=== PATIENT | male | born 1935 | race Caucasian/White ===

== ENCOUNTER 2019-05-24 16:49 | Inpatient (IN) ==
--- NOTE | 2019-05-24 17:44 | Emergency Department Note ---
Fall HPI - General Chief Complaint: Fall Stated Complaint: Fall Time Seen by Provider: 05/24/19 17:03 Source: EMS Mode of arrival: EMS - History of Present Illness HPI Narrative: 83-year-old male patient brought into the emergency department via ambulance with chief complaint left hip pain with a shortened and angulated left lower extremity. 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 He was out "cleaning the gutters" when he placed his cane accidentally in some mud. This caused his cane to slip out from underneath him and he fell towards the right side. During this time he felt pain in his left hip and was unable to get up. EMS was contacted and they brought him in for further evaluation. Upon arrival, patient admits that the pain is only present when he is moves around. He has been nonambulatory since the fall. He admits to hitting his head but denies loss of consciousness. He denies any preceding shortness of breath, dizziness, retrosternal chest pain or palpitations prior to falling. He denies any fever, sweats, chills. He admits to an ongoing cough that is currently being worked up by a header set up operator. He is supposed to undergo a swallow evaluation tomorrow. He denies abdominal pain, nausea, vomiting, or diarrhea. He admits to left-sided focal weakness associated with the CVA. A review of his active problems shows the following: Neural foraminal stenosis of the lumbar spine, overflow incontinence, basal cell carcinoma of the nose, prostate cancer, spondylolisthesis, anxiety, insomnia, dysphasia, hypertriglyceridemia, gastrointestinal hemorrhage, left leg DVT, CVA, bronchitis, hypertension, obstructive sleep apnea. - Related Data Home Medications Medication Instructions Recorded Confirmed amlodipine 10 mg tablet 10 mg PO QAM tab 07/28/16 05/18/19 atenolol 50 mg tablet 50 mg PO QAM tab 07/28/16 05/18/19 losartan 100 1 tab PO QAM tab 07/28/16 05/18/19 mg-hydrochlorothiazide 25 mg tablet zolpidem 10 mg tablet 10 mg PO QHS PRN tab 07/28/16 05/18/19 Aspirin [Lite Coat Aspirin] 325 mg PO DAILY 10/26/17 05/18/19 Melatonin 10 mg PO HS 10/26/17 05/18/19 QUEtiapine [SEROquel] 25 mg PO HS 10/26/17 05/18/19 Nyquil PO 05/18/19 05/18/19 pantoprazole 40 mg tablet,delayed 10 mg PO QAM tab 05/18/19 05/18/19 release quetiapine 50 mg tablet 50 mg PO QDAY 05/18/19 05/18/19 Previous Rx's Medication Instructions Recorded oxybutynin chloride 10 mg 10 mg PO QDAY #60 tab 04/11/19 tablet,extended release 24 hr Allergies Allergy/AdvReac Type Severity Reaction Status Date / Time hydrocodone Allergy Unknown Upset Verified 05/24/19 16:50 Stomach Review of Systems All systems ED: reviewed and negative except as stated. Fall PMH - Past Medical History Medical history: Reports: DVT - Social History smoking status: Never smoker Physical Exam Limitations: no limitations General appearance: alert, grimacing (With any form of movement of the left lower leg.), in no apparent distress (No apparent respiratory distress), other (Well-developed, well-nourished, obese 83-year-old male in no acute respiratory distress.) Head: atraumatic, normocephalic Eye: Present: normal appearance, PERRL, EOMI, other (No raccoon eyes.). Absent: scleral icterus, conjunctival injection ENT: Present: normal oropharynx, mucous membranes dry, other (No moznon signs.) Neck: Present: trachea midline. Absent: tenderness, lymphadenopathy, thyromegaly Chest: Present: symmetric chest wall rise Respiratory: Present: normal lung sounds bilaterally. Absent: respiratory distress, wheezes, stridor, accessory muscle use, prolonged expiratory phase Cardiovascular: Present: regular rate, normal rhythm. Absent: systolic murmur, diastolic murmur Abdominal: Present: soft, hyperactive bowel sounds, other (Patient's body habitus is large making abdominal palpation somewhat difficult.). Absent: d istention, tenderness, guarding, rebound, rigidity, organomegaly, mass Extremities: Present: tenderness (Considerable tenderness to the left hip joint. ), normal capillary refill. Absent: normal inspection, full ROM (No range of motion was attempted to the left hip. He moves his right arm deformity motion. He has good range of motion to his right leg. Left arm is drawn up and weathered.), pedal edema Hip/Pelvis: Present: tenderness (Left hip joint.), external rotation (Left leg), shortening (Left leg). Absent: crepitus Neurological: Present: alert, oriented X3, other (Sensation is grossly intact light touch in all areas.) Psychiatric: Present: normal affect, anxious Skin: Present: warm, dry, normal color Course Course Narrative: Patient was brought into the emergency department and a history and physical exam was performed. An IV was already established and laboratory studies were drawn. Patient was already given 100 mcg of fentanyl by EMS. He is currently comfortable laying supine not moving. Radiographs left hip show an acute transverse femoral neck fracture. Portable chest x-ray showing no acute abnorma lity. With the noted femoral neck fracture I reached out to the on-call orthopedic surgeon (Dr. Otero) and discussed the case with him. At this time Dr. Otero requested that I reach out to the hospitalist in order to the patient admitted. After reviewing the films, he will determine whether or not he is going to attempt surgery tonight or tomorrow. With this in mind, I discussed this with the patient and his family. Next, I reached out to the hospitalist (Dr. Aparicio) about the need for admission. At this time the hospitalist is accepted the patient to be admitted to the hospital. It is my understanding that Dr. Otero will perform the surgical procedure tomorrow some time. I discussed this with the patient and his family and they are in agreement. As mentioned, the patient is suffering from some form of cough and is going to be scheduled for a swallow eval in the. He continues to cough aggressively in the emergency room and this is causing him his considerable pain. I ordered Dilaudid 0.5mg IVP. I am also going to try benzonatate 200mg p.o. Afterward, patient is going to be admitted under the care of the hospitalist with Dr. Otero consulting is the orthopedic surgeon. All future treatment decisions and modalities will be carried out by Dr. Aparicio and Dr. Otero. Vital Signs Temperature 98.0 F 05/24/19 16:50 Pulse Rate 60 05/24/19 16:50 Respiratory Rate 18 05/24/19 16:50 Blood Pressure 148/68 05/24/19 16:50 Pulse Oximetry (%) 93 01/29/20 16:50 Temperature 98.0 F 05/24/19 16:50 Pulse Rate 60 05/24/19 16:50 Respiratory Rate 18 05/24/19 16:50 Blood Pressure 148/68 05/24/19 16:50 Pulse Oximetry (%) 93 05/24/19 16:50 Fall - Lab Data Lab results reviewed: Yes I reviewed the patient's lab results. Result diagrams: 05/24/19 17:46 05/24/19 17:46 Lab Results 05/24/19 05/24/19 05/24/19 Range/Units 17:46 17:46 17:46 WBC 6.6 (4.50-11.00) K/mcL RBC 4.78 (4.63-6.08) M/mcL Hgb 14.7 (13.7-17.5) g/dL Hct 43.7 (40.1-51.0) % MCV 91.4 (80.0-100.0) fL MCH 30.8 (26.0-34.0) pg MCHC 33.6 (31.0-36.0) g/dL RDW 13.5 (11.5-14.5) % Plt Count 202 (140-440) K/mcL MPV 11.5 H (7.4-10.4) fL Gran % 68.6 (38.0-78.0) % Lymph % (Auto) 18.7 (15.5-49.0) % [place] % (Auto) 8.6 (1.0-12.0) % Eos % (Auto) 3.5 (0.0-7.0) % Baso % (Auto) 0.6 (0.0-2.0) % Gran # 4.56 (1.80-8.00) K/mcL Lymph # (Auto) 1.24 L (1.50-4.80) K/mcL [place] # (Auto) 0.57 (0.10-0.90) K/mcL Eos # (Auto) 0.23 (0.00-0.70) K/mcL Baso # (Auto) 0.04 (0.00-0.30) K/mcL POC PT 11.6 L (11.9-14.5) sec POC INR 1.0 (0.9-1.2) Sodium 138 (133-145) mmol/L Potassium 4.1 (3.3-5.1) mmol/L Chloride 102 (96-108) mmol/L Carbon Dioxide 25 (22-30) mmol/L Anion Gap 11.0 (8-16) BUN 24 H (8-23) mg/dl Creatinine 0.9 (0.7-1.2) mg/dl GFR Calculation 80 Glucose 145 H (70-105) mg/dL Calcium 8.4 L (8.6-10.4) mg/dl Total Bilirubin 0.7 (0.0-1.0) mg/dL AST 27 (0-37) U/l ALT 25 (0-40) U/l Alkaline Phosphatase 60 (39-117) U/L Total Protein 6.7 (5.9-8.4) gm/dL Albumin 3.9 (3.2-5.2) gm/dL Globulin 2.8 (2.2-3.7) gm/dL Albumin/Globulin Ratio 1.4 (1.0-2.3) - Radiology Data Radiology results reviewed: Yes I reviewed the patient's radiology results. Ordering Physician: Jon Zepeda M.D. Date of Service: 05/24/19 Procedure(s): XR hip LT comp 2VW Accession Number(s): [id number] HISTORY: History: Fell with left hip injury. FINDINGS: there is an acute transverse fracture through the left femoral neck. The shaft is retracted proximally and the head is rotated. The hip joint space is normal in width and there is no underlying arthritis. There are multiple surgical clips in both sides of the pelvis. There is no evidence of bone metastasis. Postsurgical changes are also seen in the lumbar spine following prior fusion. IMPRESSION: left femoral neck fracture Interpreted and Authenticated by: Benjamin Anne 05/24/19 - EKG Data EKG attestation: Yes I reviewed and interpreted this EKG., Yes There are no EKG findings of acute coronary syndrome, Yes This EKG will be read by logging engineer Disposition Pt seen by SWEATBAND PERFORATOR/PA only: Yes Clinical Impression: Left displaced femoral neck fracture, Cough Disposition: Home, Self-Care Condition: Serious Additional Instructions: As mentioned the patient is going to be admitted to the hospital of the care of the hospitalist with the orthopedic surgeon in consultation. All further treatment decisions and modalities will be carried out by the hospitalist or orthopedic surgeon. Referrals: Sebastian Adams DO [Primary Care Provider] - Venkat Otero MD [Physician] -
--- NOTE | 2019-05-24 17:50 | XRay Report ---
HISTORY: History: Fell with left hip injury. FINDINGS: there is an acute transverse fracture through the left femoral neck. The shaft is retracted proximally and the head is rotated. The hip joint space is normal in width and there is no underlying arthritis. There are multiple surgical clips in both sides of the pelvis. There is no evidence of bone metastasis. Postsurgical changes are also seen in the lumbar spine following prior fusion. IMPRESSION: left femoral neck fracture Interpreted and Authenticated by: Benjamin Anne 05/24/19
--- NOTE | 2019-05-24 17:51 | XRay Report ---
HISTORY: Preop to repair left hip fracture FINDINGS: Lungs are clear. Heart size is normal. There is no congestive heart failure or pleural effusion. There are few old healed left lateral rib fractures. Comparison with the prior chest CT done on 05/10/19 shows little change. IMPRESSION: No acute abnormality Interpreted and Authenticated by: Benjamin Anne 05/24/19
[2019-05-24 17:52] LABS: POC Pro Time 11.6 sec (11.9-14.5)
[2019-05-24 18:24] LABS: Basophils # (Auto) 0.04 K/mcL (0.00-0.30); Basophils % (Auto) 0.6 % (0.0-2.0); Eosinophils # (Auto) 0.23 K/mcL (0.00-0.70); Eosinophils % (Auto) 3.5 % (0.0-7.0); Granulocytes % (Auto) 68.6 % (38.0-78.0); Hematocrit 43.7 % (40.1-51.0); Hemoglobin 14.7 g/dL (13.7-17.5); Lymphocytes # (Auto) 1.24 K/mcL (1.50-4.80); Lymphocytes % (Auto) 18.7 % (15.5-49.0); Mean Cell Volume 91.4 fL (80.0-100.0); Mean Corpuscular HGB Conc 33.6 g/dL (31.0-36.0); Mean Platelet Volume 11.5 fL (7.4-10.4); Monocytes # (Auto) 0.57 K/mcL (0.10-0.90); Monocytes % (Auto) 8.6 % (1.0-12.0); Platelet Count 202 K/mcL (140-440); RBC 4.78 M/mcL (4.63-6.08); Red Cell Distribution Width 13.5 % (11.5-14.5); WBC 6.6 K/mcL (4.50-11.00)
[2019-05-24 18:34] LABS: ALT/SGPT 25 U/l (0-40); AST/SGOT 27 U/l (0-37); Albumin 3.9 gm/dL (3.2-5.2); Albumin/Globulin Ratio 1.4 (1.0-2.3); Alkaline Phosphatase 60 U/L (39-117); Bilirubin,Total 0.7 mg/dL (0.0-1.0); Blood Urea Nitrogen 24 mg/dl (8-23); Calcium 8.4 mg/dl (8.6-10.4); Carbon Dioxide 25 mmol/L (22-30); Chloride 102 mmol/L (96-108); Globulin 2.8 gm/dL (2.2-3.7); Glomerular Filtration Rate 80; Glucose 145 mg/dL (70-105)
[2019-05-24] MEDS ORDERED: HYDROmorphone 2 MG/ML VIAL IV PRN ×3 (18:34→20:49)
[2019-05-24] MEDS ORDERED: ONDANSETRON 4 MG/2 ML VIAL IV PRN ×2 (19:08→20:49)
[2019-05-24] MEDS ORDERED: ACETAMINOPHEN 325 MG TABLET PO PRN ×2 (19:08→20:49)
[2019-05-24] MEDS ORDERED: 0.9 % SODIUM CHLORIDE 1,000 ML IV SCH (19:15)
[2019-05-24] MEDS ORDERED: BENZONATATE 100 MG CAPSULE PO ONE (19:27)
--- NOTE | 2019-05-24 20:25 | Internal Med History&Physical ---
Medical - H&P: HPI Patient information: Note initiated : 05/24/19 at 8:20 pm Service Date, if different from initiated Date: [] Patient: Bryan Arriaga 83 y/o M admitted on for Fall. Chief Complaint: [] was walking with his cane. 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 Right arm cane was misplaced in a hole and he fell on left hip with fem neck displaced fracture. Admitted at this time with anticipated Left hip repair tomorrow morning. Pt denies CAD and had just the one stroke while working in [place] 1971. Has been on a baby asa daily since then. 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 Able to drive a manual transmission car and used a nail in a board to peel potatoes. Pt recently less mobile with age. He has been battling a 2-3 month dry cough, positionally worse when supine. feels like something in his throat. Has swallow study scheduled outpt for tomorrow. Denies any pneumonia or cough production. Denies chest pain with activity. No trouble swallowing. Beyond sun related skin cancers tx with radiation to face. per pt no other cancers, by old records has had prostate and bladder cancers though Accompanied by his brother and a sister in law. Pt wants DNR status. History of present illness: Mr. Arriaga is a 83 year old M - Constitutional Constitutional: Present: snoring. Absent: chills, fever(s), frequent falls, lethargy, malaise - EENT Eyes: Absent: change in vision, other visual disturbances Nose, mouth and throat: Absent: dysphagia, epistaxis, odynophagia, tongue swelling - Cardiovascular Cardiovascular: Absent: chest pain, dyspnea on exertion, irregular heart rhythm - Respiratory Respiratory: Present: cough. Absent: chest congestion, excessive phlegm production - Gastrointestinal Gastrointestinal: Absent: abdominal pain, change in bowel habits, dysphagia - Genitourinary Genitourinary: Absent: urinary frequency, urinary hesitancy - Musculoskeletal Musculoskeletal: Present: abnormal gait - Neurological Neurological: Present: as per HPI (has mild left facial droop no trouble with speech left leg discoord. left arm contract, hand not functional for grasp) - Psychiatric Psychiatric: Absent: behavioral changes - Hematologic/Lymphatic Hematologic/Lymphatic: Absent: easy bleeding, easy bruising Medical - H&P: PMH Problems Reviewed: Yes Medical history: hypertension, insomnia, past CVA Functional capacity: uses cane/walker Have you smoked in the last 12 months: No Medical - H&P: Meds Home Medications Medication Instructions Recorded Confirmed Type amlodipine 10 mg tablet 10 mg PO QAM tab 07/28/16 05/24/19 History atenolol 50 mg tablet 50 mg PO QAM tab 07/28/16 05/24/19 History losartan 100 1 tab PO QAM tab 07/28/16 05/24/19 History mg-hydrochlorothiazide 25 mg tablet zolpidem 10 mg tablet 10 mg PO QHS PRN tab 07/28/16 05/24/19 History QUEtiapine [SEROquel] 50 mg PO HS 10/26/17 05/24/19 History oxybutynin chloride 10 mg 10 mg PO QDAY #60 tab 04/11/19 05/24/19 Rx tablet,extended release 24 hr pantoprazole 40 mg tablet,delayed 10 mg PO QAM tab 05/18/19 05/24/19 History release quetiapine 50 mg tablet 50 mg PO QDAY 05/18/19 05/24/19 History Benzonatate [Tessalon] 100 - 200 mg PO Q8HP PRN 05/24/19 05/24/19 History Hydrochlorothiazide [Oretic] 25 mg PO QAM 05/24/19 05/24/19 History Allergies Allergy/AdvReac Type Severity Reaction Status Date / Time hydrocodone Allergy Unknown Upset Verified 05/24/19 16:50 Stomach Medical - H&P: Exam - Constitutional Vitals: Temp Pulse Resp BP Pulse Ox 98.0 F 60 18 148/68 93 05/24/19 16:50 05/24/19 16:50 05/24/19 16:50 05/24/19 16:50 05/24/19 16:50 General appearance: obese - Head Head exam: Present: atraumatic - Eye Eye exam: Present: normal appearance - Expanded ENT Exam Nose & sinuses exam: Absent: external nose, grossly normal (surgical scarring nose mild misshapen) Mouth exam: Present: moist, muffled voice (hoarse, no high notes, mono tone), tongue normal. Absent: drooling Throat exam: Present: normal inspection. Absent: post pharyngeal edema, post pharyngeal erythema - Neck Neck exam: Absent: tenderness - Expanded Neck Exam Neck exam: Absent: anterior neck swelling - Respiratory Respiratory exam: Present: normal respiratory exam, CTAB. Absent: chest wall tenderness, rales, respiratory distress - Cardiovascular Cardiovascular exam: Present: normal rate and rhythm - GI/Abdominal GI/Abdominal exam: Present: normal bowel sounds, soft. Absent: tenderness - Rectal Rectal exam: Present: deferred - Expanded Exam Urine Appearance: Clear (mid tone yellow) Urine Color: Dark Yellow (franco in place) - Extremities Exam Extremities exam: Present: pedal edema (1+ bilat) - Neurological Exam Neurological exam: Present: alert, oriented X3 - Expanded Neurological Exam Patient oriented to: Present: person, place, time - Psychiatric Psychiatric exam: Present: normal affect, normal mood - Skin Skin exam: Present: dry, warm Medical - H&P: Reslt - Labs CBC & Chem 7: 05/24/19 17:46 05/24/19 17:46 Labs: Short CBC 05/24/19 Range/Units 17:46 WBC 6.6 (4.50-11.00) K/mcL Hgb 14.7 (13.7-17.5) g/dL Hct 43.7 (40.1-51.0) % Plt Count 202 (140-440) K/mcL BMP 05/24/19 17:46 Sodium 138 Potassium 4.1 Chloride 102 Carbon Dioxide 25 BUN 24 H Creatinine 0.9 Glucose 145 H Calcium 8.4 L Liver Function 05/24/19 Range/Units 17:46 Total Bilirubin 0.7 (0.0-1.0) mg/dL AST 27 (0-37) U/l ALT 25 (0-40) U/l Alkaline Phosphatase 60 (39-117) U/L Albumin 3.9 (3.2-5.2) gm/dL Medical - H&P: A/P (1) Closed fracture of left hip Problem details: displaced but not open. will need surgery possibly NEAL. ok to proceed with surgery. planned for the morning. no cardiopulmonary symptoms INR normal. 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 NSSTTW Changes Current visit: Yes Status: Acute (2) Hypertension Problem details: stable and no chest pain. Current visit: No Status: Chronic (3) Stroke Problem details: left hemiplegia. no change Current visit: No Status: Chronic (4) Cough Problem details: pt with hoarse voice and loss of vocal range. 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 Has seen scada technician may benefit from visualization of airway. Current visit: Yes Status: Chronic
[2019-05-24] MEDS: HYDROmorphone 2 MG/ML VIAL IV PRN (20:30)
[2019-05-24] MEDS ORDERED: BENZOCAINE 1 SPRAY BOTTLE TOPICAL ONE (20:46)
[2019-05-24] MEDS ORDERED: SENNOSIDES 1 TABLET PO SCH (21:00)
[2019-05-24] MEDS ORDERED: DOCUSATE SODIUM 100 MG CAPSULE PO SCH (21:00)
[2019-05-24] MEDS ORDERED: BENZOCAINE 1 SPRAY BOTTLE TOPICAL PRN ×2 (21:19)
[2019-05-24 22:00] LABS: Appearance,Urine CLEAR; Bilirubin,Urine NEG (NEG); Color,Urine YELLOW; Culture Indicated,Urine NO; Glucose,Urine (UA) NEGATIVE (NEG); Ketones,Urine NEG (NEG); Leukocyte Esterase,Urine NEG /uL (NEG); Nitrate,Urine NEG (NEG); Protein,Urine NEG (NEG); Specific Gravity,Urine 1.023 (1.000-1.035); Urine Blood NEG mg/dL (<0.03); Urobilinogen,Urine NEG (NEG)
[2019-05-24] MEDS ORDERED: 0.9 % SODIUM CHLORIDE 10 ML SYRINGE IV SCH (22:00)
[2019-05-24] MEDS: SENNOSIDES 1 TABLET PO SCH (22:03)
[2019-05-24] MEDS: DOCUSATE SODIUM 100 MG CAPSULE PO SCH (22:03)
[2019-05-24] MEDS: BENZONATATE 100 MG CAPSULE PO PRN (22:03)
[2019-05-24] MEDS: QUEtiapine 25 MG TABLET PO SCH (22:03)
[2019-05-24] MEDS: ZOLPIDEM 5 MG TABLET PO PRN (22:04)
[2019-05-25] MEDS: 0.9 % SODIUM CHLORIDE 1,000 ML IV SCH ×3 (00:42→16:51)
[2019-05-25] MEDS: 0.9 % SODIUM CHLORIDE 10 ML SYRINGE IV SCH ×3 (00:43→14:02)
[2019-05-25] MEDS: BENZONATATE 100 MG CAPSULE PO PRN ×2 (06:08→20:59)
[2019-05-25] MEDS: PANTOPRAZOLE 40 MG TABLET PO SCH (07:43)
[2019-05-25] MEDS ORDERED: SCOPOLAMINE 1 PATCH PATCH TOPICAL PRN (07:50)
[2019-05-25] MEDS ORDERED: IPRATROPIUM/ALBUTEROL 3 ML AMPUL.NEB NEB PRN ×2 (07:50→14:52)
--- NOTE | 2019-05-25 08:20 | History and Physical Report ---
DATE OF ADMISSION: 05/24/2019 CHIEF COMPLAINT: Left hip pain as well as severe cough. HISTORY OF PRESENT ILLNESS: The patient was walking out to his street to clear a rain gutter in the street when his cane got stuck and caused him to fall. He has had previous stroke with left hemiplegia that contributed to the fall. The stroke was back in 1971. The patient was brought to the ED. X-rays were taken which showed a displaced femoral neck fracture and Orthopedics was then consulted for definitive treatment. The patient is significantly concerned about his cough. He has been seen for this several times in the ED. They have ordered a swallow study to check his vocal cords and throat. This has not yet been completed. Hospitalist has recommended that at the time of intubation during surgery for Anesthesia to do an evaluation of his vocal cords and throat. PAST MEDICAL HISTORY: Previous CVA in 1971, hypertension, and insomnia. PAST SURGICAL HISTORY: Spinal surgery. HOME MEDICATIONS: 1. Amlodipine. 2. Atenolol. 3. Losartan. 4. Zolpidem. 5. Seroquel. 6. Oxybutynin. 7. Pantoprazole. 8. Quetiapine. 9. Tessalon. 10. Hydrochlorothiazide. ALLERGIES: HYDROCODONE, stating that this causes upset stomach. PHYSICAL EXAMINATION: VITAL SIGNS: Most recent vital signs include temperature 98.4, pulse rate is 84, respiratory rate is 16, blood pressure is 146/77, pulse ox is 93 with 2 liters of oxygen. The patient is 6 foot, 248 pounds. GENERAL: He is alert and oriented x3. He has got appropriate mood and affect. He is in mild acute distress due to his significant cough. HEART: Regular. LUNGS: Sounds clear to auscultation. However, he does get a chest rattle when he coughs. I think this is not related to actual lung pathology, however. EXTREMITIES: He does move his right lower extremity with no pain. He does have good hip flexion, knee flexion, extension, ankle plantar flexion, dorsiflexion. His left hip upon inspection is shortened and externally rotated. He does move his toes, flex and extend okay. Otherwise, he is unable to move the left lower extremity due to pain. He does have tenderness to palpation over the left hip. He does have palpable tibial pulses bilaterally and sensation is grossly intact to light touch. There is mild swelling noted on the left hip as well. IMAGING: X-rays do show a displaced femoral neck fracture of the left hip. IMPRESSION: Left hip displaced femoral neck fracture. PLAN: The patient has elected to proceed with a left hip hemiarthroplasty to be performed by Dr. Otero. Initially, he did want transfer out of the hospital to evaluate his cough prior to proceeding with surgery. I explained that we will continue to monitor his breathing situation and have him evaluated by Anesthesia as well prior to surgery. I did have a long discussion with the patient regarding the procedure and the postoperative protocol. I advised the patient of the risks of surgery including bleeding, infection, injury to nerves, blood vessels, other structures in the area, anesthetic risks which Anesthesia would talk to him about. I advised him that anytime we are doing surgery for pain or fracture that there is no guarantee we will relieve any or all of his pain and potential for repeat fracture or fracture not healing. The patient understands risks and is willing to proceed. ALDAIR:bar Job ID: [id number] Doc ID: [id number] Felix Combs PA-C
[2019-05-25] MEDS: HYDROCHLOROTHIAZIDE 25 MG TABLET PO SCH (08:57)
[2019-05-25] MEDS: ATENOLOL 50 MG TABLET PO SCH (08:57)
[2019-05-25] MEDS: LOSARTAN 50 MG TABLET PO SCH (08:57)
[2019-05-25] MEDS: amLODIPine 10 MG TABLET PO SCH (08:58)
[2019-05-25] MEDS ORDERED: ENOXAPARIN 40 MG/0.4 ML SYRINGE SQ SCH ×2 (09:00)
[2019-05-25] MEDS ORDERED: LOSARTAN/HCTZ 100/25 TABLET PO SCH (09:00)
[2019-05-25] MEDS: QUEtiapine 25 MG TABLET PO SCH ×2 (09:01→20:58)
[2019-05-25] MEDS: DOCUSATE SODIUM 100 MG CAPSULE PO SCH ×2 (09:01→20:59)
[2019-05-25] MEDS ORDERED: [UNRECOGNIZED DRUG - OTHER] TOPICAL PRN (10:10)
[2019-05-25] MEDS ORDERED: BENZOCAINE 20% TOPICAL PRN (10:10)
--- NOTE | 2019-05-25 10:10 | Emergency Department Note ---
ED Note Addendum Note Addendum: I reviewed this case of Edson Knight PA-C. I agree with his evaluation management documentation. In particular we discussed management of a fractured hip and the need for admission. I briefly visited with the patient's family try to answer any questions and alleviate any concerns. Patient will be admitted to the hospitalist and orthopedics will plan on repairing his fractured hip tomorrow
[2019-05-25] MEDS: AZITHROMYCIN 500 MG in DEXTROSE 5% IN WATER 250 ML IV SCH (13:16)
[2019-05-25] MEDS ORDERED: ceFAZolin 2 GM in DEXTROSE 5% IN WATER 50 ML IV SCH (13:30)
[2019-05-25] MEDS ORDERED: KETAMINE 100 MG/ML ML IV ONE (13:31)
[2019-05-25] MEDS ORDERED: GLYCOPYRROLATE 0.2 MG/ML VIAL IV ONE (13:31)
[2019-05-25] MEDS ORDERED: ROPIVACAINE HCL/PF 30 ML VIAL IJ ONE (13:31)
[2019-05-25] MEDS ORDERED: DEXAMETHASONE 10 MG/ML VIAL IV ONE (13:31)
[2019-05-25] MEDS ORDERED: SUCCINYLCHOLINE 20 MG/ML ML IV ONE (13:31)
[2019-05-25] MEDS ORDERED: fentaNYL 250 MCG/5 ML VIAL IV ONE (13:31)
[2019-05-25] MEDS ORDERED: PROPOFOL 200 MG/20 ML VIAL IV ONE (13:31)
[2019-05-25] MEDS ORDERED: LIDOCAINE HCL/PF 100 MG/5 ML SYRINGE IV ONE (13:31)
[2019-05-25] MEDS ORDERED: ONDANSETRON 4 MG/2 ML VIAL IV ONE (13:31)
[2019-05-25] MEDS ORDERED: fentaNYL 100 MCG/2 ML VIAL IV PRN (14:52)
[2019-05-25] MEDS ORDERED: MEPERIDINE 25 MG/ML SYRINGE IV PRN (14:52)
[2019-05-25] MEDS ORDERED: ACETAMINOPHEN 1,000 MG/100 ML BOTTLE IV ONE (14:52)
[2019-05-25] MEDS ORDERED: KETOROLAC 15 MG/ML VIAL IV PRN (14:52)
[2019-05-25] MEDS ORDERED: ONDANSETRON 4 MG/2 ML VIAL IV PRN (14:52)
[2019-05-25] MEDS ORDERED: BENZOCAINE/MENTHOL 1 LOZENGE PO PRN (14:52)
[2019-05-25] MEDS ORDERED: LACTATED RINGERS 1,000 ML IV SCH (15:00)
--- NOTE | 2019-05-25 15:05 | Brief Operative Note ---
Date of procedure: 05/25/19 Pre-op diagnosis: Left displaced femoral neck fracture Post-op diagnosis: same Procedure: Open treatment left femoral neck fracture with prosthetic hemiarthroplasty Grafts/Implants: Yes (Depuy 8 summit basic cementless stem, +0 neck, 54 unipolar head) Anesthesia: spinal, GLMA Findings: displace fracture Complications: none Surgeon: Venkat Otero Grommet Worker: Felix Combs Estimated blood loss (cc): 250 Specimens Removed/Pathology: other (femoral head, discarded) Condition: stable Disposition: PACU
--- NOTE | 2019-05-25 16:07 | Operative Note ---
DATE OF OPERATION: 05/25/2019 PREOPERATIVE DIAGNOSIS: Left displaced femoral neck fracture, closed. POSTOPERATIVE DIAGNOSIS: Left displaced femoral neck fracture, closed. PROCEDURE PERFORMED: Open treatment of the left displaced femoral neck fracture with prosthetic hemiarthroplasty placing a DePuy Baxter Basic cementless size 8 femoral stem, a 0 neck with a 54 unipolar head. SURGEON: Venkat Otero M.D. HARNESS REPAIRER: Leonardo Combs PA-C. ANESTHESIA: Spinal plus general. DRAINS: None. SPECIMENS: Femoral head which was discarded. BLOOD LOSS: 250 mL. COMPLICATIONS: None. POSTOPERATIVE CONDITION: Stable. INDICATIONS FOR SURGERY: This is an 83-year-old male who fell yesterday injuring his left hip. He had pain and inability to bear weight. He was taken to the emergency department and x-rays taken which showed a displaced femoral neck fracture. FINDINGS AT SURGERY: Displaced fracture. Post-placement of the hemiarthroplasty showed stable hip throughout range of motion and what appeared to be similar leg lengths. PROCEDURE IN DETAIL: The patient had been seen preoperatively and informed consent had been obtained after discussion of risks and benefits of surgery. Risks including, but not limited to, bleeding; infection, possibly requiring implant removal and prolonged IV antibiotics; injury to nerves, blood vessels, other surrounding structures; anesthetic risks; dislocation; fracture; DVT and pulmonary embolus risks; and the possibility of needing further revision surgery. He understood and wished to proceed. Correct operative site was marked in preoperative holding and patient was given spinal anesthesia and then taken to the operating room. LMA general was given. He was positioned in the right lateral decubitus position and pressure points were carefully padded. Left hip and lower extremity were then carefully prepped and draped in normal sterile fashion, and a timeout was performed verifying patient name, operative site, and plan. Ioban was used to cover all skin surfaces and a standard posterior approach incision was made with a scalpel through skin and subcutaneous tissue. Hemostasis was obtained with Bovie cautery. We continued careful dissection down onto the tensor fascia and then Irrisept was irrigated. We then incised the fascia in line with the skin incision and then the Charnley retractor was placed deep. We used a lap sponge to sweep the fat off the short external rotators and then these were released off the femur. Capsule was then incised in a T-shape up to the acetabular rim and then along perpendicular to the neck. We then opened this and a large hemarthrosis was evacuated. A corkscrew was placed in the femoral head and then this was removed. We removed bone fragments from the joint and then made sure the ligament was excised from the central acetabulum. We then exposed the proximal femur. Box osteotome was used to make canal entry. A hand awl was used to identify canal trajectory. We used the lateralizing rasp and then began sequentially broaching. A size 7 broach seated below our neck cut, so we went up to a size 8. This seated just above our neck cut. We trialed with a 0 neck and it reduced with good tension and did not appear to be excessively tight. We checked stability and it was good, so we went ahead and redislocated. We removed the trial implants. Definitive implants were opened. We irrigated copiously with Irrisept, after waiting a minute and copiously pulse lavaged with saline. The stem was then impacted. It did seat a couple millimeters proud of our broach. We went ahead and impacted the unipolar head onto the stem. The hip was reduced. We then irrigated with Irrisept, and then after a minute pulse lavaged with saline. The posterior capsule was then closed with #5 FiberWire [id number] sutures. We then closed the tensor fascia with two running #1 Vicryls. A final Irrisept irrigation was done, after a minute final pulse lavage, and then 2-0 Monocryl was used for subcutaneous closure and radha for skin. Xeroform and sterile dressing were applied. The patient was then placed in an abductor wedge, awakened, extubated, and transferred to recovery in stable condition. CIPRIANO:bar Job ID: [id number] Doc ID: [id number] Venkat Otero MD
--- NOTE | 2019-05-25 16:50 | XRay Report ---
HISTORY: Postop left hip replacement FINDINGS: There is a well-positioned unipolar left hip prosthesis. No fractures present. There are multiple surgical clips in the lower pelvis bilaterally, suggesting prior prostate surgery. IMPRESSION: Well-positioned left hip prosthesis Interpreted and Authenticated by: Benjamin Anne 05/25/19
--- NOTE | 2019-05-25 17:04 | Internal Med Progress Note ---
Medical - PN: Subj Patient information: Note initiated : 05/25/19 at 4:50 pm Service Date, if different from initiated Date: [] Patient: Bryan Arriaga 83 y/o M admitted on 05/24/19 for Fall. Chief Complaint: [] Interval history: pt with worsened cough overnight. grumpy after narcotics and was requesting transfer to [place] for cough evaluation. Pt was seen earlier and with his brother and sister in law present. Pt with some yellow production. sputum sample ordered and pt started on azithromycin for possible pertussis. Pt unable to lie flat for CT neck earlier. Vocal cords ok on intubation. Anesthesiol ogist suspect bronchitis. the Pt underwent left hemiarthroplasty and is doing ok. Cough is less. He is willing to go lie flat for CT neck. Has been coughing for 2 months. - Constitutional Vitals: Vital Signs Temp Pulse Resp BP Pulse Ox 98.7 F 62 14 164/71 93 05/25/19 16:15 05/25/19 16:20 05/25/19 16:20 05/25/19 16:20 05/25/19 16:20 Period Temp Pulse Resp BP Sys/Alamo Pulse Ox Last 24 Hr 97.1 F-98.7 F 55-110 14-19 130-164/55-97 88-99 Intake and Output 05/25/19 05/25/19 05/25/19 05:59 13:59 21:59 Intake Total 0 808 2950 Output Total 85 Balance 0 808 2865 Weight 248 lb 8 oz Patient Weight 05/26/19 05:59 Weight 248 lb 8 oz Intake & Output: Intake & Output 05/25/19 05/25/19 05/25/19 05:59 13:59 21:59 Intake Total 0 808 2950 Output Total 85 Balance 0 808 2865 Weight 248 lb 8 oz Intake: IV 808 1350 Sodium Chloride 0.9% 1,000 ml @ 808 1000 75 mls/hr IV .[id number] [facility] Rx#: [id number] Zithromax 500 mg In Dextrose 5% 250 in Water 250 ml @ 250 mls/hr IV Q24H GR[facility] Rx#:[id number] Oral 0 IV - Manual Only 1600 Output: Estimated Blood Loss 85 - Respiratory Respiratory exam: Present: normal respiratory exam, CTAB, respiratory distress (severe coughing). Absent: decreased breath sounds, rales, stridor, wheezes - Cardiovascular Cardiovascular exam: Present: normal rate and rhythm - GI/Abdominal GI/Abdominal exam: Present: normal bowel sounds, soft - Extremities Exam Extremities exam: Absent: calf tenderness Medical - PN: Obj Da - Labs CBC & Chem 7: 05/24/19 17:46 05/24/19 17:46 Labs: Abnormal Lab Results 05/24/19 05/24/19 05/24/19 17:46 17:46 17:46 MPV 11.5 H Lymph # (Auto) 1.24 L POC PT 11.6 L BUN 24 H Glucose 145 H Calcium 8.4 L Meds: Medications Acetaminophen (Tylenol) 650 mg PO Q6HP PRN; Protocol PRN Reason: Per Pain Protocol/Fever > 101 Last Admin: 05/25/19 00:47 Dose: 650 mg Documented by: Albuterol/Ipratropium (Duoneb) 3 ml NEB ONCE PRN PRN Reason: Wheezing Stop: 05/25/19 16:52 Amlodipine Besylate (Norvasc) 10 mg PO QAM [facility] Last Admin: 05/25/19 08:58 Dose: 10 mg Documented by: Atenolol (Tenormin) 50 mg PO QAM [facility] Last Admin: 05/25/19 08:57 Dose: 50 mg Documented by: Benzonatate (Tessalon) 200 mg PO Q8HP PRN PRN Reason: Cough Stop: 05/30/19 23:59 Last Admin: 05/25/19 06:08 Dose: 200 mg Documented by: Cefazolin Sodium (Ancef) 2 gm IV Q8H [facility] Stop: 05/26/19 05:01 Docusate Sodium (Colace) 100 mg PO BID [facility] Last Admin: 05/25/19 09:01 Dose: Not Given Documented by: Fentanyl (Sublimaze) 25 mcg IV Q2M PRN PRN Reason: Pain Stop: 05/25/19 16:53 Hydrochlorothiazide (Oretic) 25 mg PO DAILY [facility] Last Admin: 05/25/19 08:57 Dose: 25 mg Documented by: Hydromorphone HCl (Dilaudid) 0.5 mg IV Q2HP PRN; Protocol PRN Reason: Per Pain Protocol Last Admin: 05/24/19 20:30 Dose: 0.5 mg Documented by: Sodium Chloride (Sodium Chloride 0.9%) 1,000 mls @ 75 mls/hr IV .[id number] [facility] Last Infusion: 05/25/19 16:45 Dose: Infused Documented by: Azithromycin 500 mg/ Dextrose 250 mls @ 250 mls/hr IV Q24H [facility]; Protocol Stop: 05/27/19 12:59 Last Infusion: 05/25/19 14:30 Dose: Infused Documented by: Cefazolin Sodium 2 gm/ (Dextrose) 50 mls @ 100 mls/hr IV PREOP [facility]; Protocol Stop: 05/25/19 17:00 Last Admin: 05/25/19 13:26 Dose: 100 mls/hr Documented by: Lactated Ringer's (Lactated Ringers) 1,000 mls @ 20 mls/hr IV .Q24H [facility] Stop: 05/25/19 16:53 Ketorolac Tromethamine (Toradol) 15 mg IV ONCE PRN PRN Reason: Pain Stop: 05/25/19 16:53 Losartan Potassium (Cozaar) 100 mg PO DAILY [facility] Last Admin: 05/25/19 08:57 Dose: 100 mg Documented by: Meperidine HCl (Demerol) 12.5 mg IV Q5M PRN PRN Reason: Shivering Stop: 05/25/19 16:52 Benzocaine [ Hurricaine] 20% Topical Anesthetic [place] 1 dose TOPICAL Q4HP PRN PRN Reason: Cough Ondansetron HCl (Zofran) 4 mg IV Q6HP PRN PRN Reason: Nausea And Vomiting Last Admin: 05/24/19 22:02 Dose: 4 mg Documented by: Ondansetron HCl (Zofran) 4 mg IV ONCE PRN PRN Reason: Nausea And Vomiting Stop: 05/25/19 16:52 Oxycodone/Acetaminophen (Percocet 5-325 Mg) 0 tab PO Q4HP PRN; Protocol PRN Reason: Per Pain Protocol [facility] Last Admin: 05/25/19 07:43 Dose: Not Given Documented by: Quetiapine Fumarate (Seroquel) 50 mg PO HS [facility] Last Admin: 05/24/19 22:03 Dose: 50 mg Documented by: Quetiapine Fumarate (Seroquel) 50 mg PO QDAY [facility] Last Admin: 05/25/19 09:01 Dose: 50 mg Documented by: Scopolamine (Transderm-Scop) 1 patch TOPICAL PREOP PRN PRN Reason: Nausea And Vomiting Senna (Senokot) 2 tab PO HS [facility] Last Admin: 05/24/19 22:03 Dose: 2 tab Documented by: Sodium Chloride (Saline Flush) 10 ml IV Q8 [facility] Last Admin: 05/25/19 14:02 Dose: Not Given Documented by: Throat Lozenges (Cepacol) 1 lozenge PO PRN PRN PRN Reason: Sore Throat Stop: 05/25/19 16:52 Warfarin Sodium (Coumadin Per Pharmacy) 1 order PO UD [facility] Warfarin Sodium (Coumadin) 4 mg PO ONCE@1800 ONE Stop: 05/25/19 18:01 Zolpidem Tartrate (Ambien) 10 mg PO HSP PRN PRN Reason: Insomnia Last Admin: 05/24/19 22:04 Dose: 10 mg Documented by: Medical - PN: A/P - Time Spent With Patient Total time spent is greater than 50% in coordination of care (as documented) at patient's floor/unit and/or counseling patient: (1) Closed fracture of left hip Problem details: underwent left hemiarthroplasty today no cardiac symptoms INR normal. 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 NSSTTW Changes Status: Acute Current Visit: Yes (2) Hypertension Problem details: stable and no chest pain. Status: Chronic Current Visit: No (3) Stroke Problem details: left hemiplegia. no change Status: Chronic Assessment and plan: resume home asa Current Visit: No (4) Cough Problem details: pt with hoarse voice and loss of vocal range. 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 Has not seen remote broadcast technician may benefit from visualization of airway. will proceed with CT neck with IV contrast additionally will tx for bronchitis with azithromycin and some steroids. Status: Chronic Current Visit: Yes Medical - PN: Qual - VTE Deep Vein Thrombosis/Pulmonary Embolism Present on Admission: No
[2019-05-25] MEDS ORDERED: IOPAMIDOL 100 ML BOTTLE IV ONE (17:35)
[2019-05-25] MEDS: predniSONE 10 MG TABLET PO SCH (17:44)
--- NOTE | 2019-05-25 17:54 | Cat Scan Report ---
History: Persistent chronic cough, change in voice TECHNIQUE: Following injection of intravenous nonionic contrast the patient was scanned during the arterial phase from the skull base through the zahida. Sagittal and coronal reformats were created. The radiation exposure was limited using dose reduction technology. FINDINGS: The visualized sinuses are clear. The oral cavity and parapharyngeal spaces are normal without evidence of mass or inflammation. No abnormality is seen in the hypopharynx or larynx. The vocal cords appear normal and symmetric. Salivary glands are normal and symmetric. There are few small benign-appearing reactive lymph nodes in both sides of the neck. Carotid arteries are tortuous but normal in caliber and there is no significant plaque formation. Vertebral arteries are normal in caliber. Patient has developed significant inflammation in the right upper lobe along with bands of atelectasis. These have developed since the recent chest CT done on 05/10/19. The wall of the right mainstem bronchus is abnormally thickened. The thickening extends into the second and third order right upper lobe bronchi. There is moderate narrowing at the lumen of the origin of the bronchus to the right apex, best seen on axial image #104. Narrowing of the lumen and bronchial wall thickening has become significantly worse since the prior CT scan. The left-sided bronchi appear normal without evidence of inflammation or narrowing. The proximal thoracic esophagus is mildly distended with gas. Similar findings were present on the prior exam and this is probably of little consequence. IMPRESSION: Thickened melissa of the right mainstem bronchi along with the second and third order bronchi in the right upper lobe. This could be due to bronchitis or an endobronchial tumor. Bronchoscopy may be helpful for further workup. Postobstructive partial atelectasis and inflammation in the right upper lobe Normal larynx Interpreted and Authenticated by: Benjamin Anne 05/25/19
[2019-05-25] MEDS ORDERED: WARFARIN 2 MG TABLET PO ONE (18:00)
[2019-05-25] MEDS: oxyCODONE/APAP 5/325MG TABLET PO PRN (20:58)
[2019-05-25] MEDS: ZOLPIDEM 5 MG TABLET PO PRN (20:59)
[2019-05-25] MEDS: SENNOSIDES 1 TABLET PO SCH (20:59)
[2019-05-26] MEDS: ceFAZolin 1 GM VIAL IV SCH ×2 (04:31→05:12)
[2019-05-26] MEDS: 0.9 % SODIUM CHLORIDE 1,000 ML IV SCH ×2 (04:32→13:15)
[2019-05-26] MEDS: 0.9 % SODIUM CHLORIDE 10 ML SYRINGE IV SCH ×4 (04:32→22:49)
[2019-05-26 07:12] LABS: Prothrombin Time 13.6 sec (11.9-14.5)
[2019-05-26 07:17] LABS: Basophils # (Auto) 0.01 K/mcL (0.00-0.30); Basophils % (Auto) 0.1 % (0.0-2.0); Eosinophils # (Auto) 0 K/mcL (0.00-0.70); Eosinophils % (Auto) 0 % (0.0-7.0); Granulocytes % (Auto) 85.5 % (38.0-78.0); Hematocrit 37.3 % (40.1-51.0); Hemoglobin 12.4 g/dL (13.7-17.5); Lymphocytes # (Auto) 0.82 K/mcL (1.50-4.80); Lymphocytes % (Auto) 7.4 % (15.5-49.0); Mean Cell Volume 90.8 fL (80.0-100.0); Mean Corpuscular HGB Conc 33.2 g/dL (31.0-36.0); Mean Platelet Volume 11.6 fL (7.4-10.4); Monocytes # (Auto) 0.77 K/mcL (0.10-0.90); Platelet Count 159 K/mcL (140-440); RBC 4.11 M/mcL (4.63-6.08); Red Cell Distribution Width 13.6 % (11.5-14.5); WBC 11.1 K/mcL (4.50-11.00)
[2019-05-26 07:38] LABS: Calcium 8.2 mg/dl (8.6-10.4); Carbon Dioxide 25 mmol/L (22-30); Chloride 100 mmol/L (96-108); Glomerular Filtration Rate 70; Glucose 162 mg/dL (70-105)
[2019-05-26 07:40] LABS: Blood Urea Nitrogen 18 mg/dl (8-23)
--- NOTE | 2019-05-26 07:43 | Orthopedic Progress Note ---
Orthopedics - Auxillary Note - Subjective Patient Information: Note initiated : 05/26/19 at 7:40 am Service Date, if different from initiated Date: [] Patient: Bryan Arriaga 83 y/o M admitted on 05/24/19 for Fall. Chief Complaint: no c/o. Pt reports feeling much better. bandages c/d/i nvi-distal Vital Signs Temp Pulse Resp BP Pulse Ox 05/26/19 06:41 98.3 F 20 139/72 95 05/26/19 04:00 97.8 F 56 L 16 137/73 96 05/25/19 23:02 98.2 F 52 L 18 128/66 92 05/25/19 22:26 57 L 142/72 91 05/25/19 20:24 63 148/84 05/25/19 20:08 53 L 144/79 91 05/25/19 19:53 61 148/70 91 05/25/19 19:38 49 L 147/76 91 05/25/19 19:23 52 L 142/72 93 05/25/19 19:08 58 L 149/76 91 05/25/19 18:52 62 152/80 92 05/25/19 18:09 44 L 147/74 93 05/25/19 17:54 41 L 152/72 93 05/25/19 17:38 56 L 147/75 93 05/25/19 16:20 62 14 164/71 93 05/25/19 16:15 98.7 F 63 19 154/97 93 05/25/19 16:00 62 14 154/73 91 05/25/19 15:45 68 18 158/89 97 05/25/19 15:40 57 L 19 147/55 99 05/25/19 15:35 58 L 18 147/59 98 05/25/19 15:30 98.2 F 56 L 19 160/58 98 05/25/19 12:00 98.7 F 110 H 150/82 91 05/25/19 08:00 98.6 F 109 H 16 153/67 91 Intake and Output 05/25/19 05/26/19 05/26/19 21:59 05:59 13:59 Intake Total 3000 876 Output Total 630 1250 Balance 2370 -374 Intake: IV 1400 876 Sodium Chloride 0.9% 1,000 ml @ 1000 876 75 mls/hr IV .[id number] GRIC[facility] Rx#: [id number] Zithromax 500 mg In Dextrose 5% 250 in Water 250 ml @ 250 mls/hr IV Q24H [facility] Rx#:[id number] Ancef 2 gm In Dextrose 5% in 50 Water 50 ml @ 100 mls/hr IV PREOP [facility] Rx#:[id number] IV - Manual Only 1600 Output: Urine Catheter Amount 545 1250 Estimated Blood Loss 85 Other: Urine Appearance Clear Uretheral (Schwartz) Clear Urine Color Pale Dark Yellow Uretheral (Schwartz) Bright Yellow Urine Odor Normal Weight 252 lb 9.6 oz Laboratory Results - last 24 hr 05/26/19 05/26/19 05/26/19 05:19 05:19 05:19 WBC 11.1 H RBC 4.11 L Hgb 12.4 L Hct 37.3 L MCV 90.8 MCH 30.2 MCHC 33.2 RDW 13.6 Plt Count 159 MPV 11.6 H Gran % 85.5 H Lymph % (Auto) 7.4 L Trinity % (Auto) 7.0 Eos % (Auto) 0 Baso % (Auto) 0.1 Gran # 9.46 H Lymph # (Auto) 0.82 L Trinity # (Auto) 0.77 Eos # (Auto) 0 Baso # (Auto) 0.01 PT 13.6 INR 1.0 Sodium 136 Potassium 3.7 Chloride 100 Carbon Dioxide 25 Anion Gap 11.0 BUN 18 Creatinine 1.0 GFR Calculation 70 Glucose 162 H Calcium 8.2 L s/p L jovan hip arthroplasty-stable mobilize with PT cont medical management per hospitalist may discharge from ortho standpoint. -Coumadin x 30 days. -weight bear as tolerated. -f/u at [facility] in 2 weeks. -leave dressing on 7-14 days.
[2019-05-26] MEDS: amLODIPine 10 MG TABLET PO SCH (08:07)
[2019-05-26] MEDS: HYDROCHLOROTHIAZIDE 25 MG TABLET PO SCH (08:07)
[2019-05-26] MEDS: predniSONE 10 MG TABLET PO SCH (08:07)
[2019-05-26] MEDS: LOSARTAN 50 MG TABLET PO SCH (08:08)
[2019-05-26] MEDS: ATENOLOL 50 MG TABLET PO SCH (08:08)
[2019-05-26] MEDS: DOCUSATE SODIUM 100 MG CAPSULE PO SCH ×2 (08:08→21:58)
[2019-05-26] MEDS: QUEtiapine 25 MG TABLET PO SCH ×2 (08:09→21:58)
[2019-05-26] MEDS: PANTOPRAZOLE 40 MG TABLET PO SCH (09:11)
[2019-05-26] MEDS: AZITHROMYCIN 500 MG in DEXTROSE 5% IN WATER 250 ML IV SCH (09:11)
[2019-05-26] MEDS: BENZONATATE 100 MG CAPSULE PO PRN ×2 (09:15→21:54)
[2019-05-26] MEDS ORDERED: WARFARIN 2 MG TABLET PO ONE (14:00)
--- NOTE | 2019-05-26 15:56 | Internal Med Progress Note ---
Medical - PN: Subj Patient information: Note initiated : 05/26/19 at 3:54 pm Service Date, if different from initiated Date: [] Patient: Bryan Arriaga 83 y/o M admitted on 05/24/19 for Fall. Chief Complaint: [] Interval history: Patient postoperatively yesterday stated his cough completely resolved. He had suction with his intubation and cleared much phlegm. His CT scan showed right mainstem thickening and sputum. Today he reports that his cough has partially returned. Patient is frustrated that he did not get more physical and occupational therapy today. Patient is scheduled for halfway facility transfer tomorrow. Pertinent ROS: No fevers or chills - Constitutional Vitals: Vital Signs Temp Pulse Resp BP Pulse Ox 97.8 F 59 L 20 149/79 94 05/26/19 12:00 05/26/19 12:00 05/26/19 12:00 05/26/19 12:00 05/26/19 12:00 Period Temp Pulse Resp BP Sys/Alamo Pulse Ox Last 24 Hr 97.8 F-98.7 F 41-63 14-20 128-164/66-97 91-96 Intake and Output 05/26/19 05/26/19 05/26/19 05:59 13:59 21:59 Intake Total 876 1384 Output Total 1250 Balance -374 1384 Intake & Output: Intake & Output 05/26/19 05/26/19 05/26/19 05:59 13:59 21:59 Intake Total 876 1384 Output Total 1250 Balance -374 1384 Intake: IV 876 904 Sodium Chloride 0.9% 1,000 ml @ 876 654 75 mls/hr IV .[id number] [facility] Rx#: [id number] Zithromax 500 mg In Dextrose 5% 250 in Water 250 ml @ 250 mls/hr IV Q24H [facility] Rx#:[id number] Oral 480 Output: Urine Catheter Amount 1250 Other: Meal Breakfast Percent of Meal Consumed 100% Feeding Ability Independent Urine Appearance Clear Uretheral (Schwartz) Clear Urine Color Dark Yellow Uretheral (Schwartz) Bright Yellow Urine Odor Normal General appearance: cooperative, morbidly obese, no acute distress (Occasional cough), obese - Respiratory Respiratory exam: Present: normal respiratory exam, CTAB (Recurrent coughing wi th a whooping sound) - Cardiovascular Cardiovascular exam: Present: normal rate and rhythm, RRR - GI/Abdominal GI/Abdominal exam: Present: normal bowel sounds, soft. Absent: tenderness - Speculum exam: Present: foreign body (Schwartz catheter in place) - Neurological Exam Neurological exam: Present: altered, oriented X3 - Psychiatric Psychiatric exam: Present: normal affect, normal mood Medical - PN: Obj Da - Labs CBC & Chem 7: 05/26/19 05:19 05/26/19 05:19 Labs: Abnormal Lab Results 05/26/19 05/26/19 05/24/19 05:19 05:19 17:46 WBC 11.1 H RBC 4.11 L Hgb 12.4 L Hct 37.3 L MPV 11.6 H Gran % 85.5 H Lymph % (Auto) 7.4 L Gran # 9.46 H Lymph # (Auto) 0.82 L POC PT BUN 24 H Glucose 162 H 145 H Calcium 8.2 L 8.4 L 05/24/19 05/24/19 17:46 17:46 WBC RBC Hgb Hct MPV 11.5 H Gran % Lymph % (Auto) Gran # Lymph # (Auto) 1.24 L POC PT 11.6 L BUN Glucose Calcium Meds: Medications Acetaminophen (Tylenol) 650 mg PO Q6HP PRN; Protocol PRN Reason: Per Pain Protocol/Fever > 101 Last Admin: 05/25/19 00:47 Dose: 650 mg Documented by: Albuterol Sulfate (Ventolin) 2.5 mg NEB Q4HP PRN PRN Reason: Cough Amlodipine Besylate (Norvasc) 10 mg PO [facility] Last Admin: 05/26/19 08:07 Dose: 10 mg Documented by: Atenolol (Tenormin) 50 mg PO [facility] Last Admin: 05/26/19 08:08 Dose: 50 mg Documented by: Benzonatate (Tessalon) 200 mg PO Q8HP PRN PRN Reason: Cough Stop: 05/30/19 23:59 Last Admin: 05/26/19 09:15 Dose: 200 mg Documented by: Ceftriaxone Sodium (Rocephin) 1 gm IV DAILY [facility]; Protocol Stop: 06/01/19 09:01 Docusate Sodium (Colace) 100 mg PO BID [facility] Last Admin: 05/26/19 08:08 Dose: 100 mg Documented by: Guaifenesin (Mucinex) 600 mg PO BID [facility] Hydrochlorothiazide (Oretic) 25 mg PO DAILY [facility] Last Admin: 05/26/19 08:07 Dose: 25 mg Documented by: Hydromorphone HCl (Dilaudid) 0.5 mg IV Q2HP PRN; Protocol PRN Reason: Per Pain Protocol Last Admin: 05/24/19 20:30 Dose: 0.5 mg Documented by: Sodium Chloride (Sodium Chloride 0.9%) 1,000 mls @ 75 mls/hr IV .[id number] [facility] Last Admin: 05/26/19 13:15 Dose: 75 mls/hr Documented by: Azithromycin 500 mg/ Dextrose 250 mls @ 250 mls/hr IV Q24H [facility]; Protocol Stop: 05/27/19 12:59 Last Infusion: 05/26/19 10:20 Dose: Infused Documented by: Losartan Potassium (Cozaar) 100 mg PO DAILY [facility] Last Admin: 05/26/19 08:08 Dose: 100 mg Documented by: Benzocaine [ Hurricaine] 20% Topical Anesthetic [place] 1 dose TOPICAL Q4HP PRN PRN Reason: Cough Non-Formulary Medication (Oxybutynin Chloride [Oxybutynin Chloride Er]) 10 mg PO QDAY [facility] Ondansetron HCl (Zofran) 4 mg IV Q6HP PRN PRN Reason: Nausea And Vomiting Last Admin: 05/24/19 22:02 Dose: 4 mg Documented by: Oxycodone/Acetaminophen (Percocet 5-325 Mg) 0 tab PO Q4HP PRN; Protocol PRN Reason: Per Pain Protocol Last Admin: 05/25/19 20:58 Dose: 2 tab Documented by: Pantoprazole Sodium (Protonix) 10 mg PO [facility] Last Admin: 05/26/19 09:11 Dose: 10 mg Documented by: Prednisone (Prednisone) 30 mg PO [facility] Last Admin: 05/26/19 08:07 Dose: 30 mg Documented by: Quetiapine Fumarate (Seroquel) 50 mg PO [facility] Last Admin: 05/25/19 20:58 Dose: 50 mg Documented by: Quetiapine Fumarate (Seroquel) 50 mg PO QDAY [facility] Last Admin: 05/26/19 08:09 Dose: 50 mg Documented by: Scopolamine (Transderm-Scop) 1 patch TOPICAL PREOP PRN PRN Reason: Nausea And Vomiting Senna (Senokot) 2 tab PO HS [facility] Last Admin: 05/25/19 20:59 Dose: 2 tab Documented by: Sodium Chloride (Saline Flush) 10 ml IV Q8 [facility] Last Admin: 05/26/19 14:05 Dose: Not Given Documented by: Warfarin Sodium (Coumadin Per Pharmacy) 1 order PO UD [facility] Zolpidem Tartrate (Ambien) 10 mg PO HSP PRN PRN Reason: Insomnia Last Admin: 05/25/19 20:59 Dose: 10 mg Documented by: Medical - PN: A/P - Time Spent With Patient Total time spent is greater than 50% in coordination of care (as documented) at patient's floor/unit and/or counseling patient: Greater than 35 minutes (1) Closed fracture of left hip Problem details: underwent left hemiarthroplasty 05/25/2019 no cardiac symptoms INR normal. 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 NSSTTW Changes Status: Acute Current Visit: Yes (2) Hypertension Problem details: stable and no chest pain. Status: Chronic Assessment and plan: Stable on home meds. Current Visit: No (3) Stroke Problem details: left hemiplegia. no change Status: Chronic Assessment and plan: resume home asa Current Visit: No (4) Cough Problem details: pt with hoarse voice and loss of vocal range. 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 CT scan of the neck unremarkable but CT scan of the chest showed right mainstem thickening. Treated with suction at the time of surgery which was markedly helpful. Currently he is receiving a azithromycin and steroids. Will add nebulizers which were ordered yesterday to be given. Continue with incentive spirometry. Add Rocephin Status: Chronic Current Visit: Yes Medical - PN: Qual - VTE Deep Vein Thrombosis/Pulmonary Embolism Present on Admission: No
[2019-05-26] MEDS: cefTRIAXone 1 GM VIAL IV SCH (16:39)
[2019-05-26] MEDS: oxyCODONE/APAP 5/325MG TABLET PO PRN (16:51)
[2019-05-26] MEDS: SENNOSIDES 1 TABLET PO SCH (21:57)
[2019-05-26] MEDS: guaiFENesin 600 MG TAB.SR.12H PO SCH (21:57)
[2019-05-26] MEDS: ALBUTEROL SULFATE 2.5 MG/3 ML NEBULIZER NEB PRN (22:33)
[2019-05-26] MEDS: ZOLPIDEM 5 MG TABLET PO PRN (22:48)
[2019-05-27] MEDS: oxyCODONE/APAP 5/325MG TABLET PO PRN ×3 (00:46→15:50)
[2019-05-27] MEDS: ALBUTEROL SULFATE 2.5 MG/3 ML NEBULIZER NEB PRN ×2 (02:34→08:53)
[2019-05-27] MEDS: 0.9 % SODIUM CHLORIDE 1,000 ML IV SCH ×3 (03:02→18:42)
[2019-05-27] MEDS: ceFAZolin 2 GM in DEXTROSE 5% IN WATER 50 ML IV SCH ×2 (04:21→06:52)
[2019-05-27] MEDS: 0.9 % SODIUM CHLORIDE 10 ML SYRINGE IV SCH ×3 (05:43→23:18)
[2019-05-27] MEDS: BENZONATATE 100 MG CAPSULE PO PRN ×2 (06:41→15:55)
[2019-05-27 06:48] LABS: Prothrombin Time 14.1 sec (11.9-14.5)
[2019-05-27] MEDS: OXYBUTYNIN CHLORIDE 5 MG TAB.XL.24H PO SCH (08:08)
[2019-05-27] MEDS: guaiFENesin 600 MG TAB.SR.12H PO SCH ×2 (08:08→19:03)
[2019-05-27] MEDS: PANTOPRAZOLE 40 MG TABLET PO SCH ×2 (08:13→17:00)
[2019-05-27] MEDS: LOSARTAN 50 MG TABLET PO SCH (08:14)
[2019-05-27] MEDS: amLODIPine 10 MG TABLET PO SCH (08:14)
[2019-05-27] MEDS: HYDROCHLOROTHIAZIDE 25 MG TABLET PO SCH (08:14)
[2019-05-27] MEDS: DOCUSATE SODIUM 100 MG CAPSULE PO SCH ×2 (08:14→19:04)
[2019-05-27] MEDS: predniSONE 10 MG TABLET PO SCH (08:14)
[2019-05-27] MEDS: QUEtiapine 25 MG TABLET PO SCH ×2 (08:15→19:04)
[2019-05-27] MEDS: ATENOLOL 50 MG TABLET PO SCH (08:19)
[2019-05-27] MEDS: AZITHROMYCIN 500 MG in DEXTROSE 5% IN WATER 250 ML IV SCH (08:31)
[2019-05-27] MEDS: cefTRIAXone 1 GM VIAL IV SCH (08:36)
--- NOTE | 2019-05-27 11:14 | Orthopedic Progress Note ---
Subjective Patient information: Note initiated : 05/27/19 at 11:12 am Service Date, if different from initiated Date: [] Patient: Bryan Arriaga 83 y/o M admitted on 05/24/19 for Fall. Chief Complaint: [] difficult cough over night, but no ortho issue Objective Vital signs: Vital Signs Temp Pulse Pulse Resp BP BP Pulse Ox 05/27/19 08:57 86 20 05/27/19 08:53 93 05/27/19 07:34 99.2 F H 75 22 172/87 91 05/27/19 07:00 75 05/27/19 03:11 98.4 F 80 24 H 141/93 91 05/27/19 02:35 79 22 05/27/19 00:28 98.4 F 75 22 165/74 94 05/26/19 22:33 79 20 91 05/26/19 19:00 99.8 F H 54 L 24 H 148/80 94 05/26/19 16:00 98.7 F 57 L 20 157/83 96 05/26/19 12:00 97.8 F 59 L 20 149/79 94 Intake and Output 05/26/19 05/27/19 05/27/19 21:59 05:59 13:59 Intake Total 1300 Output Total 2777 2 Balance -2777 1298 Intake: IV 1000 Sodium Chloride 0.9% 1,000 ml @ 1000 75 mls/hr IV .[id number] GRICELDA Rx#: [id number] Oral 300 Output: Urine Catheter Amount 2400 Void Amount 375 # of times incontinent of urine 2 2 Other: Urine Appearance Clear Urine Color Bright Yellow Urine Odor Normal Intake & Output: Intake & Output 05/26/19 05/27/19 05/27/19 21:59 05:59 13:59 Intake Total 1300 Output Total 2777 2 Balance -2777 1298 Intake: IV 1000 Sodium Chloride 0.9% 1,000 ml @ 1000 75 mls/hr IV .[id number] GRICEL[facility] Rx#: [id number] Oral 300 Output: Urine Catheter Amount 2400 Void Amount 375 # of times incontinent of urine 2 2 Other: Urine Appearance Clear Urine Color Bright Yellow Urine Odor Normal Dressing: Yes clean, Yes dry, Yes intact Neurological exam IM: Yes neurovascular intact - Labs CBC & BMP: 05/26/19 05:19 05/26/19 05:19 Labs: Orthopedic Labs 05/27/19 05/26/19 05/24/19 05:34 05:19 17:46 POC PT 11.6 L PT 14.1 13.6 POC INR 1.0 INR 1.0 1.0 05/26/19 05/24/19 05:19 17:46 Hgb 12.4 L 14.7 Hct 37.3 L 43.7 Assessment and Plan (1) Left displaced femoral neck fracture mobilize with physical therapy DC planning hospitalist working on cough etc Status: Acute
--- NOTE | 2019-05-27 13:25 | Consultation ---
DATE OF CONSULTATION: 05/27/2019 PULMONARY CONSULTATION CONSULTING: Dr. Corona. REQUESTING: Dr. Aparicio. PATIENT AGE: 83. HISTORY OF PRESENT ILLNESS: The patient is a pleasant 83-year-old gentleman, who presented to the hospital on 05/24/2019 after sustaining a fall. The patient indicates that he was ambulating with his cane in his usual fashion when his cane went into a softer muddier environment and slipped and he fell to his side, sustaining a hip fracture. He was admitted and taken to surgery by the orthopedic service on the day after admission for repair. Part of the patient's difficulties in presenting history and physical indicated the presence of a significant cough. The patient states that this has been present for some time and he is a bit vague about how long it has been going on. Indicates that it is largely productive of clear secretions. He denies green, yellow or red. He denies fevers, sweats or chills. CT scan of the neck and upper chest on my review indicates a significantly abnormal esophagus with retained secretions as well as some chronic inflammatory and bronchiectatic changes in the right lung consistent with the probability of chronic reflux and aspiration. 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 He does indicate some difficulty with mealtime and certain pills as far as swallowing. The patient reports a normal childhood. 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 He denies asbestos exposure in that capacity. He denies other polly or industrial hobbies or exposures. No unusual pets, plants, or birds or other in the home. He denies known exposure to tuberculosis or previous PPD skin testing. He indicates that he is a lifetime nonsmoker. PAST MEDICAL HISTORY: Medical issues include hypertensive cardiovascular disease. He denies symptomatic gastroesophageal reflux disease. REVIEW OF SYSTEMS: Negative except as recorded above on detailed questioning with the exception of history of bladder dysfunction, seeing Dr. Guillermo. PHYSICAL EXAMINATION: GENERAL: The patient is a pleasant 83-year-old gentleman, listing to the right side in the bed, in no acute distress. He does not cough significantly during the course of history and physical examination. HEENT: Head: Atraumatic, normocephalic. NECK: Supple. Carotids without bruits. LUNGS: Remarkably clear to auscultation and percussion. HEART: Distant; regular S1, S2. No gallop, rub, jugular venous distention or dependent edema. ABDOMEN: Soft. Bowel sounds are present. No apparent mass or organomegaly. MUSCULOSKELETAL: Bones, joints, and extremities have changes of recent hip fracture and surgical repair, but no dependent edema. Compression booty on operated leg. NEUROLOGIC: Demonstrates the presence of a dense left hemiplegia. LABORATORY DATA: Collected during this hospitalization includes 2 CBCs which are essentially normal; slight elevated white count post-surgery and slight drop in hemoglobin. Glucose is elevated on two determinations of 145 and 162. BUN and creatinine yesterday 18 and 1.0. Urinalysis unremarkable. Nasal swab culture for MRSA negative. CT scan of the chest does demonstrate changes in the right lung consistent with a chronic inflammatory process such as aspiration with bronchiectasis and airway thickening, as well as a significantly dilated course of the esophagus to that part which is imaged. IMPRESSION: Cough, likely secondary to reflux and aspiration with now present significant airway inflammation and bronchiectasis, leading to chronic mucus retention, secretion, and cough. Would recommend mucolytics and antireflux regimen includin. Acid suppression. 2. Elevation of incline of the bed to try and help clear the esophagus at night time. 3. Nothing by mouth for half an hour to an hour preferably prior to reclining, so that there is nothing to try and reflux and be aspirated. 4. The possibility of some mild weight reduction to decrease abdominal pressure. I would be happy to see the fellow as an outpatient. His primary care, he indicates is Dr. Adams and apparently a workup has been planned for speech and swallowing and a barium esophagram, that plan should go forward to better understand his situation. Thank you for the opportunity to participate in the care of this very pleasant gentleman. LUIGI:in Job ID: [id number] Doc ID: [id number] Praveen Corona MD
[2019-05-27] MEDS ORDERED: WARFARIN 5 MG TABLET PO ONE (14:00)
--- NOTE | 2019-05-27 14:08 | Internal Med Progress Note ---
Medical - PN: Subj Patient information: Note initiated : 05/27/19 at 2:06 pm Service Date, if different from initiated Date: [] Patient: Bryan Arriaga 83 y/o M admitted on 05/24/19 for Fall. Chief Complaint: [] Interval history: Patient complains of intractable cough. He reports that suction at the time of his intubation was effective and taps his right forehead with his right forefinger to demonstrate how obvious it is what he needs. He states that if we cannot make him better here to send him somewhere where he can be made better Patient has been refusing his nebulizer treatments he states it makes his cough worse. He has been taking guaifenesin. He has not been on flutter valve or incentive spirometry but is receiving steroids. Discussed with the patient possibility of having deep suction attempted and he is willing to try it. Additionally I asked Dr. Corona to see the patient in consultation. - Constitutional Vitals: Vital Signs Temp Pulse Resp BP Pulse Ox 99.3 F H 57 L 20 149/76 90 05/27/19 12:00 05/27/19 12:00 05/27/19 12:00 05/27/19 12:00 05/27/19 12:00 Period Temp Pulse Resp BP Sys/[place] Pulse Ox Last 24 Hr 98.4 F-99.8 F 54-86 20-24 141-172/74-93 90-96 Intake and Output 05/27/19 05/27/19 05/27/19 05:59 13:59 21:59 Intake Total 1300 250 Output Total 2 1 Balance 1298 249 Intake & Output: Intake & Output 05/27/19 05/27/19 05/27/19 05:59 13:59 21:59 Intake Total 1300 250 Output Total 2 1 Balance 1298 249 Intake: IV 1000 250 Sodium Chloride 0.9% 1,000 ml @ 1000 75 mls/hr IV .[id number] GRICELDA Rx#: [id number] Zithromax 500 mg In Dextrose 5% 250 in Water 250 ml @ 250 mls/hr IV Q24H GRICELDA Rx#:[id number] Oral 300 Output: # of times incontinent of urine 2 1 General appearance: obese - Respiratory Respiratory exam: Present: rhonchi Additional comments: Clear with cough - Cardiovascular Cardiovascular exam: Present: normal rate and rhythm - Neurological Exam Neurological exam: Present: alert, oriented X3 Additional comments: Left arm with contracture - Psychiatric Additional comments: Unhappy, sarcastic and angry Medical - PN: Obj Da - Labs CBC & Chem 7: 05/26/19 05:19 05/26/19 05:19 Labs: Abnormal Lab Results 05/26/19 05/26/19 05/24/19 05:19 05:19 17:46 WBC 11.1 H RBC 4.11 L Hgb 12.4 L Hct 37.3 L MPV 11.6 H Gran % 85.5 H Lymph % (Auto) 7.4 L Gran # 9.46 H Lymph # (Auto) 0.82 L POC PT BUN 24 H Glucose 162 H 145 H Calcium 8.2 L 8.4 L 05/24/19 05/24/19 17:46 17:46 WBC RBC Hgb Hct MPV 11.5 H Gran % Lymph % (Auto) Gran # Lymph # (Auto) 1.24 L POC PT 11.6 L BUN Glucose Calcium Meds: Medications Acetaminophen (Tylenol) 650 mg PO Q6HP PRN; Protocol PRN Reason: Per Pain Protocol/Fever > 101 Last Admin: 05/25/19 00:47 Dose: 650 mg Documented by: Albuterol Sulfate (Ventolin) 2.5 mg NEB Q4HP PRN PRN Reason: Cough Last Admin: 05/27/19 08:53 Dose: 2.5 mg Documented by: Amlodipine Besylate (Norvasc) 10 mg PO [facility] Last Admin: 05/27/19 08:14 Dose: 10 mg Documented by: Atenolol (Tenormin) 50 mg PO [facility] Last Admin: 05/27/19 08:19 Dose: 50 mg Documented by: Benzonatate (Tessalon) 200 mg PO Q8HP PRN PRN Reason: Cough Stop: 05/30/19 23:59 Last Admin: 05/27/19 06:41 Dose: 200 mg Documented by: Ceftriaxone Sodium (Rocephin) 1 gm IV DAILY [facility]; Protocol Stop: 06/01/19 09:01 Last Admin: 05/27/19 08:36 Dose: 1 gm Documented by: Docusate Sodium (Colace) 100 mg PO BID [facility] Last Admin: 05/27/19 08:14 Dose: 100 mg Documented by: Guaifenesin (Mucinex) 600 mg PO BID [facility] Last Admin: 05/27/19 08:08 Dose: 600 mg Documented by: Hydrochlorothiazide (Oretic) 25 mg PO DAILY [facility] Last Admin: 05/27/19 08:14 Dose: 25 mg Documented by: Hydromorphone HCl (Dilaudid) 0.5 mg IV Q2HP PRN; Protocol PRN Reason: Per Pain Protocol Last Admin: 05/24/19 20:30 Dose: 0.5 mg Documented by: Sodium Chloride (Sodium Chloride 0.9%) 1,000 mls @ 75 mls/hr IV .[id number] [facility] Last Admin: 05/27/19 03:02 Dose: 75 mls/hr Documented by: Losartan Potassium (Cozaar) 100 mg PO DAILY [facility] Last Admin: 05/27/19 08:14 Dose: 100 mg Documented by: Benzocaine [ Hurricaine] 20% Topical [facility] [place] 1 dose TOPICAL Q4HP PRN PRN Reason: Cough Last Admin: 05/27/19 08:36 Dose: 1 dose Documented by: Ondansetron HCl (Zofran) 4 mg IV Q6HP PRN PRN Reason: Nausea And Vomiting Last Admin: 05/24/19 22:02 Dose: 4 mg Documented by: Oxybutynin Chloride (Ditropan Xl) 10 mg PO DAILY [facility] Last Admin: 05/27/19 08:08 Dose: 10 mg Documented by: Oxycodone/Acetaminophen (Percocet 5-325 Mg) 0 tab PO Q4HP PRN; Protocol PRN Reason: Per Pain Protocol Last Admin: 05/27/19 11:35 Dose: 2 tab Documented by: [facility]oprazole [facility]) [facility] Last Admin: 05/27/19 08:13 Dose: 10 mg Documented by: Prednisone (Prednisone) 30 mg PO [facility] Last Admin: 05/27/19 08:14 Dose: 30 mg Documented by: Quetiapine Fumarate (Seroquel) 50 mg PO [facility] Last Admin: 05/26/19 21:58 Dose: 50 mg Documented by: Quetiapine Fumarate (Seroquel) 50 mg PO QDAY [facility] Last Admin: 05/27/19 08:15 Dose: 50 mg Documented by: Scopolamine (Transderm-Scop) 1 patch TOPICAL PREOP PRN PRN Reason: Nausea And Vomiting Senna (Senokot) 2 tab PO HS [facility] Last Admin: 05/26/19 21:57 Dose: 2 tab Documented by: Sodium Chloride (Saline Flush) 10 ml IV Q8 [facility] Last Admin: 05/27/19 05:43 Dose: Not Given Documented by: Warfarin Sodium (Coumadin Per Pharmacy) 1 order PO UD [facility] Zolpidem Tartrate (Ambien) 10 mg PO [facility] PRN PRN Reason: Insomnia Last Admin: 05/26/19 22:48 Dose: 10 mg Documented by: Medical - PN: A/P - Time Spent With Patient Total time spent is greater than 50% in coordination of care (as documented) at patient's floor/unit and/or counseling patient: Greater than 35 minutes (1) Cough Problem details: Initially I suspected vocal cord pathology however at the time of his surgery intubation was not demonstrating any vocal cord mass. Additionally he had good results with resolution of his cough following intubation and positive pressure ventilation and suction. Patient has been on steroids, Rocephin and azithromycin, nebulizers. He continues to have a severe cough. Patient was seen by Dr. Corona and noted to have thickening and pooling within his esophagus as well as fluid in his trachea and going down the right stem down to the right lower lobe. This appears to be acute on chronic based on the CT findings. Dr. Corona recommends no feeding within 2 hours of going supine elevation of head of bed, PPI, Reglan barium esophagram and speech therapy. He does not find acute need for bronchoscopy at this time. Status: Chronic Assessment and plan: Elevation head of bed, time limitation on feeding prior to going to bed, continued nebulizers, steroids, antibiotics with the addition of flutter valve and incentive spirometry. Patient was counseled regarding this plan add Reglan to the medication regimen. Current Visit: Yes (2) Closed fracture of left hip Problem details: underwent left hemiarthroplasty 05/25/2019 no cardiac symptoms INR normal. 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 NSSTTW Changes Status: Acute Current Visit: Yes (3) Hypertension Problem details: stable and no chest pain. Status: Chronic Assessment and plan: Stable on home meds. Current Visit: No (4) Stroke Problem details: left hemiplegia. no change Status: Chronic Assessment and plan: resume home asa Current Visit: No Medical - PN: Qual - VTE Deep Vein Thrombosis/Pulmonary Embolism Present on Admission: No
[2019-05-27] MEDS: IPRATROPIUM/ALBUTEROL 3 ML AMPUL.NEB NEB SCH ×3 (14:46→22:43)
[2019-05-27] MEDS: METOCLOPRAMIDE 10 MG/2 ML VIAL IV SCH ×2 (16:59→22:23)
[2019-05-27] MEDS: SENNOSIDES 1 TABLET PO SCH (19:04)
[2019-05-27] MEDS: ZOLPIDEM 5 MG TABLET PO PRN (19:58)
[2019-05-28] MEDS: HYDROmorphone 2 MG/ML VIAL IV PRN (04:19)
[2019-05-28] MEDS: 0.9 % SODIUM CHLORIDE 10 ML SYRINGE IV SCH ×3 (05:22→21:11)
[2019-05-28 06:38] LABS: INR 1.2 (0.9-1.1); Prothrombin Time 15.6 sec (11.9-14.5)
[2019-05-28] MEDS: IPRATROPIUM/ALBUTEROL 3 ML AMPUL.NEB NEB SCH ×5 (07:11→22:51)
[2019-05-28] MEDS: 0.9 % SODIUM CHLORIDE 1,000 ML IV SCH (07:17)
--- NOTE | 2019-05-28 08:51 | Orthopedic Progress Note ---
Subjective Patient information: Note initiated : 05/28/19 at 8:49 am Service Date, if different from initiated Date: [] Patient: Bryan Arriaga 83 y/o M admitted on 05/24/19 for Fall. Chief Complaint: [S/p left hip hemiarthroplasty] Patient complains of post-operative left hip pain but is otherwise doing well from an ortho standpoint. He is able to stand on the LLE w/o pain and denies any lower extremity calf tenderness. He does have a cough currently being evaluated and treated by the hospitalist. Principal diagnosis: Left femoral neck fx Objective Vital signs: Vital Signs Temp Pulse Pulse Resp BP BP Pulse Ox 05/28/19 08:00 97.7 F 64 20 141/80 99 05/28/19 07:17 60 20 05/28/19 07:11 92 05/28/19 02:45 98.1 F 62 22 149/75 92 05/27/19 22:45 68 20 05/27/19 22:40 98.1 F 66 24 H 138/75 92 05/27/19 19:22 97.9 F 68 24 H 149/83 90 05/27/19 19:10 106 H 20 05/27/19 16:00 97.7 F 75 18 132/71 92 05/27/19 15:00 57 L 05/27/19 14:50 70 20 05/27/19 12:00 99.3 F H 57 L 20 149/76 90 05/27/19 08:57 86 20 05/27/19 08:53 93 Intake and Output 05/27/19 05/28/19 05/28/19 21:59 05:59 13:59 Intake Total 2480 125 944 Output Total 1 479 Balance 2479 -354 944 Intake: IV 1000 944 Sodium Chloride 0.9% 1,000 ml @ 1000 944 75 mls/hr IV .[id number] [facility]ICELDA Rx#: [id number] Oral 1480 125 Output: Void Amount 475 # of times incontinent of urine 1 4 Other: Meal Lunch Percent of Meal Consumed 75% Feeding Ability Independent Urine Appearance Clear Urine Color Bright Yellow Urine Odor Normal Weight 255 lb 6.4 oz Intake & Output: Intake & Output 05/27/19 05/28/19 05/28/19 21:59 05:59 13:59 Intake Total 2480 125 944 Output Total 1 479 Balance 4829 -127 944 Weight 255 lb 6.4 oz Intake: IV 1000 944 Sodium Chloride 0.9% 1,000 ml @ 1000 944 75 mls/hr IV .[id number] [facility]ICELDA Rx#: [id number] Oral 1480 125 Output: Void Amount 475 # of times incontinent of urine 1 4 Other: Meal Lunch Percent of Meal Consumed 75% Feeding Ability Independent Urine Appearance Clear Urine Color Bright Yellow Urine Odor Normal Incision: Yes healing, Yes clean and dry Incision clean and dry: Yes Dressing: Yes clean, Yes dry, Yes intact Weight bearing status: full Neurological exam IM: Yes abnormal gait, Yes alert, Yes oriented X3, Yes motor sensory intact, Yes neurovascular intact Extremities exam IM: Yes calf tenderness (negative bilaterally), Yes tenderness (left lateral hip), Yes Leonides's sign (negative bilaterally), Yes Foot pink and warm, Yes neurovascular intact - Labs CBC & BMP: 05/26/19 05:19 05/26/19 05:19 Labs: Orthopedic Labs 05/28/19 05/27/19 05/26/19 05:28 05:34 05:19 POC PT PT 15.6 H 14.1 13.6 POC INR INR 1.2 H 1.0 1.0 05/24/19 17:46 POC PT 11.6 L PT POC INR 1.0 INR 05/26/19 05/24/19 05:19 17:46 Hgb 12.4 L 14.7 Hct 37.3 L 43.7 Assessment and Plan (1) Left displaced femoral neck fracture Continue PT. Use walker with ambulation. Patient may be full weight-bearing as tolerated on LLE. Discharge planning/cough workup per hospitalist. Status: Acute
--- NOTE | 2019-05-28 09:41 | XRay Report ---
HISTORY: History: Cough and aspiration FINDINGS: Patient was examined in a semierect position. He is too weak to stand upright. There is normal oral motility. He did not aspirate and there is no abnormal pooling in the vallecula nor piriform sinuses. There is moderate esophageal dysmotility in the mid and distal thirds with tertiary contractions. There is delay in the transit of barium through the esophagus into the stomach. There is no evidence of an intrinsic or extrinsic mass. No mucosal ulceration is present. There is no hiatus hernia and no gastroesophageal reflux was identified. The swallowing did not elicit any coughing. One minute 20 seconds of fluoroscopy time was used. IMPRESSION: No aspiration Diminished motility in the mid and distal third of the esophagus Interpreted and Authenticated by: Benjamin Anne 05/28/19
[2019-05-28] MEDS: ATENOLOL 50 MG TABLET PO SCH (11:32)
[2019-05-28] MEDS: cefTRIAXone 1 GM VIAL IV SCH (11:32)
[2019-05-28] MEDS: guaiFENesin 600 MG TAB.SR.12H PO SCH ×2 (11:32→21:09)
[2019-05-28] MEDS: LOSARTAN 50 MG TABLET PO SCH (11:32)
[2019-05-28] MEDS: HYDROCHLOROTHIAZIDE 25 MG TABLET PO SCH (11:33)
[2019-05-28] MEDS: amLODIPine 10 MG TABLET PO SCH (11:33)
[2019-05-28] MEDS: METOCLOPRAMIDE 10 MG/2 ML VIAL IV SCH ×4 (11:34→21:10)
[2019-05-28] MEDS: predniSONE 10 MG TABLET PO SCH (11:40)
[2019-05-28] MEDS: OXYBUTYNIN CHLORIDE 5 MG TAB.XL.24H PO SCH (11:40)
[2019-05-28] MEDS: oxyCODONE/APAP 5/325MG TABLET PO PRN ×2 (11:41→21:19)
[2019-05-28] MEDS: PANTOPRAZOLE 40 MG TABLET PO SCH ×2 (11:41→16:41)
[2019-05-28] MEDS: DOCUSATE SODIUM 100 MG CAPSULE PO SCH ×2 (11:42→21:10)
[2019-05-28] MEDS: QUEtiapine 25 MG TABLET PO SCH ×2 (11:44→21:10)
--- NOTE | 2019-05-28 14:58 | Internal Med Progress Note ---
Medical - PN: Subj Patient information: Note initiated : 05/28/19 at 2:55 pm Service Date, if different from initiated Date: [] Patient: Bryan Arriaga 83 y/o M admitted on 05/24/19 for Fall. Chief Complaint: [] Interval history: Patient tells me that his cough is intermittently better and at times just as bad. Currently he is not coughing. He is interested in having nasal tracheal suctioning again or daily. He is on diet modifications Acapella device incentive spirometry and medication. Medication includes Rocephin, azithromycin, guaifenesin, PPI, Reglan. Patient performed physical therapy and did walk to the door which she thinks is pretty good. - Constitutional Vitals: Vital Signs Temp Pulse Resp BP Pulse Ox 98.3 F 72 20 142/81 90 05/28/19 12:00 05/28/19 12:00 05/28/19 12:00 05/28/19 12:00 05/28/19 12:00 Period Temp Pulse Resp BP Sys/[place]amo Pulse Ox Last 24 Hr 97.7 F-98.3 F 57-106 18-24 132-149/71-83 90-99 Intake and Output 05/28/19 05/28/19 05/28/19 05:59 13:59 21:59 Intake Total 125 944 Output Total 479 200 Balance -354 744 Intake & Output: Intake & Output 05/28/19 05/28/19 05/28/19 05:59 13:59 21:59 Intake Total 125 944 Output Total 479 200 Balance -354 744 Intake: IV 944 Sodium Chloride 0.9% 1,000 ml @ 944 75 mls/hr IV .[id number] [facility] Rx#: [id number] Oral 125 Output: Void Amount 475 200 # of times incontinent of urine 4 Other: Urine Appearance Clear Clear Urine Color Bright Yellow Dark Yellow Urine Odor Normal Normal - Additional findings Additional findings: General well-developed obese male no acute cardiopulmonary stress he is not coughing today. CV regular rate and rhythm Lungs clear to auscultation bilaterally no rales or wheezes this did not induce coughing. Abdomen positive bowel sounds soft Calves 1+ edema left leg with some atrophy. Medical - PN: Obj Da - Labs CBC & Chem 7: 05/26/19 05:19 05/26/19 05:19 Labs: Abnormal Lab Results 05/28/19 05/26/19 05/26/19 05:28 05:19 05:19 WBC 11.1 H RBC 4.11 L Hgb 12.4 L Hct 37.3 L MPV 11.6 H Gran % 85.5 H Lymph % (Auto) 7.4 L Gran # 9.46 H Lymph # (Auto) 0.82 L PT 15.6 H INR 1.2 H Glucose 162 H Calcium 8.2 L Meds: Medications Acetaminophen (Tylenol) 650 mg PO Q6HP PRN; Protocol PRN Reason: Per Pain Protocol/Fever > 101 Last Admin: 05/25/19 00:47 Dose: 650 mg Documented by: Albuterol/Ipratropium (Duoneb) 3 ml NEB [id number] Last Admin: 05/28/19 11:09 Dose: 3 ml Documented by: Amlodipine Besylate (Norvasc) [facility] Last Admin: 05/28/19 11:33 Dose: 10 mg Documented by: Atenolol (Tenormin) 50 mg PO [facility] Last Admin: 05/28/19 11:32 Dose: 50 mg Documented by: Benzonatate (Tessalon) 200 mg PO Q8HP PRN PRN Reason: Cough Stop: 05/30/19 23:59 Last Admin: 05/27/19 15:55 Dose: 200 mg Documented by: Ceftriaxone Sodium (Rocephin) 1 gm IV DAILY [facility]; Protocol Stop: 06/01/19 09:01 Last Admin: 05/28/19 11:32 Dose: 1 gm Documented by: Docusate Sodium (Colace) 100 mg PO BID [facility] Last Admin: 05/28/19 11:42 Dose: Not Given Documented by: Guaifenesin (Mucinex) 600 mg PO BID [facility] Last Admin: 05/28/19 11:32 Dose: 600 mg Documented by: Hydrochlorothiazide (Oretic) 25 mg PO DAILY [facility] Last Admin: 05/28/19 11:33 Dose: 25 mg Documented by: Hydromorphone HCl (Dilaudid) 0.5 mg IV Q2HP PRN; Protocol PRN Reason: Per Pain Protocol Last Admin: 05/28/19 04:19 Dose: 0.5 mg Documented by: Sodium Chloride (Sodium Chloride 0.9%) 1,000 mls @ 75 mls/hr IV .[id number] [facility] Last Infusion: 05/28/19 07:17 Dose: Infused Documented by: Losartan Potassium (Cozaar) 100 mg PO DAILY [facility] Last Admin: 05/28/19 11:32 Dose: 100 mg Documented by: Metoclopramide HCl (Reglan) 5 mg IV ACHS [facility] Last Admin: 05/28/19 11:34 Dose: 5 mg Documented by: Benzocaine [ Hurricaine] 20% Topical Anesthetic [place] 1 dose TOPICAL Q4HP PRN PRN Reason: Cough Last Admin: 05/27/19 08:36 Dose: 1 dose Documented by: Ondansetron HCl (Zofran) 4 mg IV Q6HP PRN PRN Reason: Nausea And Vomiting Last Admin: 05/24/19 22:02 Dose: 4 mg Documented by: Oxybutynin Chloride (Ditropan Xl) 10 mg PO DAILY [facility] Last Admin: 05/28/19 11:40 Dose: 10 mg Documented by: Oxycodone/Acetaminophen (Percocet 5-325 Mg) 0 tab PO Q4HP PRN; Protocol PRN Reason: Per Pain Protocol Last Admin: 05/28/19 11:41 Dose: 2 tab Documented by: Pantoprazole Sodium (Protonix) 40 mg PO BIDAC [facility] Last Admin: 05/28/19 11:41 Dose: 40 mg Documented by: Prednisone (Prednisone) 30 mg PO [facility] Last Admin: 05/28/19 11:40 Dose: 30 mg Documented by: Quetiapine Fumarate (Seroquel) 50 mg PO [facility] Last Admin: 05/27/19 19:04 Dose: 50 mg Documented by: Quetiapine Fumarate (Seroquel) 50 mg PO QDAY [facility] Last Admin: 05/28/19 11:44 Dose: 50 mg Documented by: Scopolamine (Transderm-Scop) 1 patch TOPICAL PREOP PRN PRN Reason: Nausea And Vomiting Senna (Senokot) 2 tab PO [facility] Last Admin: 05/27/19 19:04 Dose: 2 tab Documented by: Sodium Chloride (Saline Flush) 10 ml IV Q8 [facility] Last Admin: 05/28/19 05:22 Dose: Not Given Documented by: Warfarin Sodium (Coumadin Per Pharmacy) 1 order PO [facility] Zolpidem Tartrate (Ambien) 10 mg PO HSP PRN PRN Reason: Insomnia Last Admin: 05/27/19 19:58 Dose: 10 mg Documented by: Medical - PN: A/P - Time Spent With Patient Total time spent is greater than 50% in coordination of care (as documented) at patient's floor/unit and/or counseling patient: 25 - 35 minutes (1) Cough Problem details: Initially I suspected vocal cord pathology however at the time of his surgery intubation was not demonstrating any vocal cord mass. Additionally he had good results with resolution of his cough following intubation and positive pressure ventilation and suction. Patient has been on steroids, Rocephin and azithromycin, nebulizers. He continues to have a severe cough. Patient was seen by Dr. Corona and noted to have thickening and pooling within his esophagus as well as fluid in his trachea and going down the right stem down to the right lower lobe. This appears to be acute on chronic based on the CT findings. Dr. Corona recommends no feeding within 2 hours of going supine elevation of head of bed, PPI, Reglan barium esophagram and speech therapy. He does not find acute need for bronchoscopy at this time. Status: Chronic Assessment and plan: Elevation head of bed, time limitation on feeding prior to going to bed, continued nebulizers, steroids, antibiotics with the addition of flutter valve and incentive spirometry. Medications include prednisone, Rocephin, azithromycin, Reglan and guaifenesin. Current Visit: Yes (2) Closed fracture of left hip Problem details: underwent left hemiarthroplasty 05/25/2019 no cardiac symptoms INR normal. 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 NSSTTW Changes Status: Acute Assessment and plan: Anticipate discharge to rehab tomorrow Current Visit: Yes (3) Hypertension Problem details: stable and no chest pain. Status: Chronic Assessment and plan: Stable on home meds. Current Visit: No (4) Stroke Problem details: left hemiplegia. no change Status: Chronic Assessment and plan: resume home asa continue with physical therapy. Patient was limited in his ability to walk due to left hemiplegia at baseline precipitating his fall Current Visit: No Medical - PN: Qual - VTE Deep Vein Thrombosis/Pulmonary Embolism Present on Admission: No
[2019-05-28] MEDS ORDERED: WARFARIN 5 MG TABLET PO ONE (16:00)
[2019-05-28] MEDS: BENZONATATE 100 MG CAPSULE PO PRN ×2 (18:13→21:09)
[2019-05-28] MEDS: ZOLPIDEM 5 MG TABLET PO PRN (21:09)
[2019-05-28] MEDS: SENNOSIDES 1 TABLET PO SCH (21:10)
[2019-05-29] MEDS: HYDROmorphone 2 MG/ML VIAL IV PRN (00:47)
[2019-05-29] MEDS: BENZONATATE 100 MG CAPSULE PO PRN ×2 (04:15→16:19)
[2019-05-29] MEDS: oxyCODONE/APAP 5/325MG TABLET PO PRN ×4 (04:15→20:47)
[2019-05-29] MEDS: 0.9 % SODIUM CHLORIDE 10 ML SYRINGE IV SCH ×3 (06:10→20:48)
[2019-05-29 06:35] LABS: INR 1.6 (0.9-1.1); Prothrombin Time 19.8 sec (11.9-14.5)
[2019-05-29] MEDS: predniSONE 10 MG TABLET PO SCH (07:16)
[2019-05-29] MEDS: METOCLOPRAMIDE 10 MG/2 ML VIAL IV SCH ×4 (07:16→20:48)
[2019-05-29] MEDS: PANTOPRAZOLE 40 MG TABLET PO SCH ×2 (07:17→16:23)
[2019-05-29] MEDS: IPRATROPIUM/ALBUTEROL 3 ML AMPUL.NEB NEB SCH ×5 (07:48→22:05)
[2019-05-29] MEDS: guaiFENesin 600 MG TAB.SR.12H PO SCH ×2 (09:13→20:47)
[2019-05-29] MEDS: OXYBUTYNIN CHLORIDE 5 MG TAB.XL.24H PO SCH (09:13)
[2019-05-29] MEDS: HYDROCHLOROTHIAZIDE 25 MG TABLET PO SCH (09:13)
[2019-05-29] MEDS: DOCUSATE SODIUM 100 MG CAPSULE PO SCH ×2 (09:13→20:48)
[2019-05-29] MEDS: QUEtiapine 25 MG TABLET PO SCH ×2 (09:13→20:47)
[2019-05-29] MEDS: cefTRIAXone 1 GM VIAL IV SCH (09:13)
[2019-05-29] MEDS: ATENOLOL 50 MG TABLET PO SCH (09:14)
[2019-05-29] MEDS: amLODIPine 10 MG TABLET PO SCH (09:14)
[2019-05-29] MEDS: LOSARTAN 50 MG TABLET PO SCH (09:14)
--- NOTE | 2019-05-29 12:15 | Internal Med Progress Note ---
Medical - PN: Subj Patient information: Note initiated : 05/29/19 at 12:13 pm Service Date, if different from initiated Date: [] Patient: Bryan Arriaga 83 y/o M admitted on 05/24/19 for Fall. Chief Complaint: [] Interval history: Patient states his cough is improving. Suctioning has not brought up much but does result in his airway sounding clearer. Patient is awaiting transfer to halfway facility for rehab regarding his left hemiarthroplasty for hip fracture. I had consulted Dr. Corona and recommendation is for Acapella device, incentive spirometry, guaifenesin, nebulizers PPIs Reglan and elevation of head of bed. Additionally no food after dinner. This has helped however the patient's cough has been slower to clear without bronchoscopy. We are holding discharge to make sure that he is not going to have uncontrolled coughing fits that would require him to be readmitted. Patient tells me he was on CPAP at home but does not know the settings. He is willing to restart them. Pertinent ROS: No fevers no cough production - Constitutional Vitals: Vital Signs Temp Pulse Resp BP Pulse Ox 98.2 F 61 20 151/72 92 05/29/19 08:00 05/29/19 11:22 05/29/19 11:22 05/29/19 08:00 05/29/19 08:00 Period Temp Pulse Resp BP Sys/[place] Pulse Ox Last 24 Hr 96.7 F-98.2 F 60-106 18-22 138-175/69-87 91-95 Intake and Output 05/28/19 05/29/19 05/29/19 21:59 05:59 13:59 Intake Total 120 Output Total 226 1 250 Balance -226 119 -250 Weight 254 lb 9.6 oz Intake & Output: Intake & Output 05/28/19 05/29/19 05/29/19 21:59 05:59 13:59 Intake Total 120 Output Total 226 1 250 Balance -226 119 -250 Weight 254 lb 9.6 oz Intake: Oral 120 Output: Void Amount 225 250 # of times incontinent of urine 1 1 Other: Urine Appearance Clear Clear Urine Color Bright Yellow Dark Yellow - Additional findings Additional findings: General well-developed well-nourished obese man no acute cardiopulmonary stress voice is strong. He is less hoarse. CV regular rate and rhythm lungs clear to auscultation bilaterally abdomen positive bowel sounds soft obese calves no significant edema Medical - PN: Obj Da - Labs CBC & Chem 7: 05/26/19 05:19 05/26/19 05:19 Labs: Abnormal Lab Results 05/29/19 05/28/19 04:52 05:28 PT 19.8 H 15.6 H INR 1.6 H 1.2 H Meds: Medications Acetaminophen (Tylenol) 650 mg PO Q6HP PRN; Protocol PRN Reason: Per Pain Protocol/Fever > 101 Last Admin: 05/25/19 00:47 Dose: 650 mg Documented by: Albuterol/Ipratropium (Duoneb) [id number] [facility] Last Admin: 05/29/19 11:17 Dose: 3 ml Documented by: Amlodipine [facility]ylate ([facility]asc) [facility] Last Admin: 05/29/19 09:14 Dose: 10 mg Documented by: Amoxicillin/Clavulanate [facility]assium ([facility]in) [facility]; Protocol Stop: 06/03/19 17:29 Atenolol (Tenormin) [facility] Last Admin: 05/29/19 09:14 Dose: 50 mg Documented by: Benzonatate (Tessalon) 200 mg PO Q8HP PRN PRN Reason: Cough Stop: 05/30/19 23:59 Last Admin: 05/29/19 04:15 Dose: 200 mg Documented by: Docusate Sodium (Colace) [address] [facility] Last Admin: 05/29/19 09:13 Dose: 100 mg Documented by: Guaifenesin (Mucinex) [address] [facility] Last Admin: 05/29/19 09:13 Dose: 600 mg Documented by: Hydrochlorothiazide (Oretic) [address] [facility] Last Admin: 05/29/19 09:13 Dose: 25 mg Documented by: Hydromorphone HCl (Dilaudid) 0.5 mg IV Q2HP PRN; Protocol PRN Reason: Per Pain Protocol Last Admin: 05/29/19 00:47 Dose: 0.5 mg Documented by: Losartan Potassium (Cozaar) [address] [facility] Last Admin: 05/29/19 09:14 Dose: 100 mg Documented by: Metoclopramide HCl (Reglan) 5 mg IV [facility] Last Admin: 05/29/19 12:09 Dose: 5 mg Documented by: Benzocaine [ Hurricaine] 20% Topical Anesthetic [place] 1 dose TOPICAL Q4HP PRN PRN Reason: Cough Last Admin: 05/27/19 08:36 Dose: 1 dose Documented by: Ondansetron HCl (Zofran) 4 mg IV Q6HP PRN PRN Reason: Nausea And Vomiting Last Admin: 05/24/19 22:02 Dose: 4 mg Documented by: Oxybutynin Chloride (Ditropan Xl) [address] [facility] Last Admin: 05/29/19 09:13 Dose: 10 mg Documented by: Oxycodone/Acetaminophen (Percocet 5-325 Mg) 0 tab PO Q4HP PRN; Protocol PRN Reason: Per Pain Protocol Last Admin: 05/29/19 09:25 Dose: 2 tab Documented by: Pantoprazole Sodium (Protonix) [address] [facility] Last Admin: 05/29/19 07:17 Dose: 40 mg Documented by: [facility]) [facility] Last Admin: 05/29/19 07:16 Dose: 30 mg Documented by: Quetiapine Fumarate (Seroquel) [address] [facility] Last Admin: 05/29/19 09:13 Dose: 50 mg Documented by: [place] (Senokot) [address] [facility] Last Admin: 05/28/19 21:10 Dose: Not Given Documented by: Sodium Chloride (Saline Flush) [address] [facility] Last Admin: 05/29/19 06:10 Dose: 10 ml Documented by: Warfarin Sodium (Coumadin Per Pharmacy) [address] [facility] Zolpidem Tartrate (Ambien) 10 mg PO HSP PRN PRN Reason: Insomnia Last Admin: 05/28/19 21:09 Dose: 10 mg Documented by: Medical - PN: A/P - Time Spent With Patient Total time spent is greater than 50% in coordination of care (as documented) at patient's floor/unit and/or counseling patient: (1) Cough Problem details: Initially I suspected vocal cord pathology however at the time of his surgery intubation was not demonstrating any vocal cord mass. Additionally he had good results with resolution of his cough following intubation and positive pressure ventilation and suction. Patient has been on steroids, Rocephin and azithromycin, nebulizers. He continues to have a severe cough. Patient was seen by Dr. Corona and noted to have thickening and pooling within his esophagus as well as fluid in his trachea and going down the right stem down to the right lower lobe. This appears to be acute on chronic based on the CT findings. Dr. Corona recommends no feeding within 2 hours of going supine elevation of head of bed, PPI, Reglan barium esophagram and speech therapy. He does not find acute need for bronchoscopy at this time. Status: Chronic Assessment and plan: Elevation head of bed, time limitation on feeding prior to going to bed, continued nebulizers, steroids, antibiotics with the addition of flutter valve and incentive spirometry. Medications include prednisone, guaifenesin, Reglan. Will add antihistamine and change antibiotic to Augmentin. Resume CPAP from home settings. Current Visit: Yes (2) Closed fracture of left hip Problem details: underwent left hemiarthroplasty 05/25/2019 no cardiac symptoms INR normal. 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 NSSTTW Changes Status: Acute Assessment and plan: Anticipate discharge to rehab tomorrow Current Visit: Yes (3) Hypertension Problem details: stable and no chest pain. Status: Chronic Assessment and plan: Stable on home meds. Current Visit: No (4) Stroke Problem details: left hemiplegia. no change Status: Chronic Assessment and plan: resume home asa continue with physical therapy. Patient was limited in his ability to walk due to left hemiplegia at baseline precipitating his fall Current Visit: No Medical - PN: Qual - VTE Deep Vein Thrombosis/Pulmonary Embolism Present on Admission: No
[2019-05-29] MEDS ORDERED: WARFARIN 3 MG TABLET PO ONE (14:00)
[2019-05-29] MEDS ORDERED: AMOXICILLIN/POTASSIUM CLAV 875 MG TABLET PO SCH (17:30)
[2019-05-29] MEDS: DOXYCYCLINE HYCLATE 100 MG TABLET.ORL PO SCH (20:48)
[2019-05-29] MEDS: SENNOSIDES 1 TABLET PO SCH (20:48)
[2019-05-29] MEDS: ZOLPIDEM 5 MG TABLET PO PRN (20:54)
[2019-05-30] MEDS: BENZONATATE 100 MG CAPSULE PO PRN (02:06)
[2019-05-30] MEDS: oxyCODONE/APAP 5/325MG TABLET PO PRN ×2 (02:06→08:18)
[2019-05-30] MEDS: 0.9 % SODIUM CHLORIDE 10 ML SYRINGE IV SCH ×2 (05:58→09:38)
[2019-05-30 07:17] LABS: INR 1.8 (0.9-1.1); Prothrombin Time 21.3 sec (11.9-14.5)
[2019-05-30] MEDS: METOCLOPRAMIDE 10 MG/2 ML VIAL IV SCH ×2 (07:47→11:53)
[2019-05-30] MEDS: PANTOPRAZOLE 40 MG TABLET PO SCH (07:47)
[2019-05-30] MEDS: IPRATROPIUM/ALBUTEROL 3 ML AMPUL.NEB NEB SCH ×2 (07:52→11:24)
[2019-05-30] MEDS: predniSONE 10 MG TABLET PO SCH (08:25)
[2019-05-30] MEDS ORDERED: LORATADINE 10 MG TABLET PO SCH (09:00)
[2019-05-30] MEDS: HYDROmorphone 2 MG/ML VIAL IV PRN (09:36)
[2019-05-30] MEDS: OXYBUTYNIN CHLORIDE 5 MG TAB.XL.24H PO SCH (09:39)
[2019-05-30] MEDS: HYDROCHLOROTHIAZIDE 25 MG TABLET PO SCH (09:40)
[2019-05-30] MEDS: QUEtiapine 25 MG TABLET PO SCH (09:40)
[2019-05-30] MEDS: guaiFENesin 600 MG TAB.SR.12H PO SCH (09:41)
[2019-05-30] MEDS: ATENOLOL 50 MG TABLET PO SCH (09:41)
[2019-05-30] MEDS: LOSARTAN 50 MG TABLET PO SCH (09:41)
[2019-05-30] MEDS: DOCUSATE SODIUM 100 MG CAPSULE PO SCH (09:41)
[2019-05-30] MEDS: amLODIPine 10 MG TABLET PO SCH (09:41)
[2019-05-30] MEDS: DOXYCYCLINE HYCLATE 100 MG TABLET.ORL PO SCH (09:46)
--- NOTE | 2019-05-30 10:15 | Discharge Summary ---
Medical - DS: Prov Patient information: Note initiated : 05/30/19 at 10:07 am Service Date, if different from initiated Date: [] Patient: Bryan Arriaga 83 y/o M admitted on 05/24/19 for Fall. Chief Complaint: [] Date of admission: 05/24/19 20:27 Discharge date: 05/30/19 Primary care physician: Sebastian Adams Admitting clinician: Wood Aparicio Attending physician on admission: Wood Aparicio Consults: 05/24/19 Consult to Physician [CONS] Stat Comment: Consulting Provider: Venkat Otero Reason For Exam: Physician to Consult Consult to Physician [CONS] Stat Comment: Consulting Provider: Wood Aparicio Reason For Exam: Physician to Consult 05/26/19 10:53 Consult to Physician [CONS] Routine Comment: Consulting Provider: Caroline Lora Reason For Exam: Physician to Consult 05/27/19 10:51 Consult to Physician [CONS] Routine Comment: Consulting Provider: Praveen Corona Reason For Exam: Physician to Consult Attending physician on discharge: Wood Aparicio Discharging clinician: Wood Aparicio Medical - DS: Meds - Discharge Medications Prescriptions: Metoclopramide [Reglan] 5 mg PO ACHS #100 tablet Active and Home Medications: Home Medications amlodipine 10 mg tablet 10 mg PO QAM tab 07/28/16 [History Confirmed 05/24/19 Last Taken 05/24/19 10:30] atenolol 50 mg tablet 50 mg PO QAM tab 07/28/16 [History Confirmed 05/24/19 Last Taken 05/24/19 10:30] losartan 100 mg-hydrochlorothiazide 25 mg tablet 1 tab PO QAM tab 07/28/16 [History Confirmed 05/24/19 Last Taken 05/24/19 10:30] zolpidem 10 mg tablet 10 mg PO QHS PRN tab 07/28/16 [History Confirmed 05/24/19 Last Taken 05/24/19 22:30] QUEtiapine [SEROquel] 50 mg PO HS 10/26/17 [History Confirmed 05/24/19 Last Taken 05/24/19 22:30] oxybutynin chloride 10 mg tablet,extended release 24 hr 10 mg PO QDAY #60 tab 04/11/19 [Rx Confirmed 05/24/19 Last Taken 05/24/19 10:30] pantoprazole 40 mg tablet,delayed release 10 mg PO QAM tab 05/18/19 [History Confirmed 05/24/19 Last Taken 05/24/19 10:30] quetiapine 50 mg tablet 50 mg PO QDAY 05/18/19 [History Confirmed 05/24/19 Last Taken 05/24/19 10:30] Benzonatate [Tessalon] 100 - 200 mg PO Q8HP PRN 05/24/19 [History Confirmed 05/24/19 Last Taken 05/24/19 20:55] Hydrochlorothiazide [Oretic] 25 mg PO QAM 05/24/19 [History Confirmed 05/24/19 Last Taken 05/24/19 10:30] Medical - DS: Hosp Discharge diagnosis: left femoral neck fracture Secondary discharge diagnosis: chronic bronchitis hypertension left hemiplegia from prev stroke sleep apnea GERD Reason for admission: left hip fracture Pertinent studies/significant findings: xray left hip fracture CT shows right mainstem bronchus thickening and esophagus thickening mild right lower lung bronchiectasis - Time Spent with Patient Total time spent providing and/or coordinating discharge services: Greater than 30 minutes Specific discharge activities: physical therapy. hob elevation. no food after dinner each night Medical - DS: Exam - Constitutional Vitals: Vital Signs Temp Pulse Pulse Resp BP BP Pulse Ox 05/30/19 08:00 98.3 F 62 22 151/77 05/30/19 07:59 60 18 05/30/19 07:53 94 05/30/19 04:42 98.1 F 51 L 22 166/81 91 05/29/19 23:18 98.2 F 54 L 24 H 150/73 93 05/29/19 22:05 68 20 05/29/19 18:55 69 20 05/29/19 18:52 97.9 F 63 20 149/75 94 05/29/19 15:51 98.1 F 70 18 147/73 94 05/29/19 14:50 70 20 05/29/19 12:00 98.4 F 67 18 137/73 99 05/29/19 11:22 61 20 Intake and Output 05/29/19 05/30/19 05/30/19 21:59 05:59 13:59 Intake Total 480 200 240 Output Total 650 352 Balance -170 -152 240 Intake: Oral 480 200 240 Output: Void Amount 650 350 # of times incontinent of urine 2 Other: Meal Lunch Breakfast Percent of Meal Consumed 100% 100% Feeding Ability Assist with Tray Set Up Urine Appearance Clear Urine Color Dark Yellow Dark Yellow Urine Odor Strong # Voids 2 Weight 253 lb 9.6 oz - Other Additional findings: General well-developed well-nourished obese male in no acute cardiopulmonary stress CV regular rate and rhythm Lungs clear to auscultation bilaterally mildly diminished in the right base but no wheezing or rhonchi or crackles. Calves trace ankle edema left leg thinner than right due to atrophy Neck no bruits no stridor During the course of this exam the patient did not have any coughing. Skin warm and dry Mentation alert and oriented x3 Medical - DS: Data Labs on day of discharge: Labs from last 24 hours 05/30/19 05:45 PT 21.3 H INR 1.8 H Preliminary micro results at discharge 05/25/19 10:53 Sputum Culture - Preliminary Sputum - Expectorated Staphylococcus aureus Yeast Medical - DS: A/P - Patient/Caregiver Discharge Instructions Activity: ambulate only with your walker, other (CPAP at night at home settings) Diet: Low Sodium (2gm), Cardiac Additional Instructions: . - Problem Maintenance (1) Cough Status: Chronic Comment: Initially I suspected vocal cord pathology however at the time of his surgery intubation was not demonstrating any vocal cord mass. Additionally he had good results with resolution of his cough following intubation and positive pressure ventilation and suction. Patient has been on steroids, Rocephin and azithromycin, nebulizers. He continued to have a severe cough. Patient was seen by Dr. Corona and noted to have thickening and pooling within his esophagus as well as fluid in his trachea and going down the right stem down to the right lower lobe. This appears to be acute on chronic based on the CT findings. With head of bed elevation not eating after 7 PM PPI, Reglan, guaifenesin and duo nebs patient has improved. His cough is decreased. [facility]. Follow-up with Dr. Corona in a week Dr. Corona recommends no feeding within 2 hours of going supine elevation of head of bed, PPI, Reglan barium esophagram and speech therapy. He does not find acute need for bronchoscopy at this time. (2) Closed fracture of left hip Status: Acute Comment: underwent left hemiarthroplasty 05/25/2019 no cardiac symptoms INR normal. 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 NSSTTW Changes Qualifiers: Encounter type: sequela Qualified Code(s): S72.002S - Fracture of unspecified part of neck of left femur, sequela (3) Hypertension Status: Chronic Comment: stable and no chest pain. Qualifiers: Hypertension type: essential hypertension Qualified Code(s): I10 - Essential (primary) hypertension (4) Stroke Status: Chronic Comment: left hemiplegia. no change Qualifiers: CVA mechanism: thrombosis Precerebral and cerebral artery: middle cerebral artery Laterality of affected vessel: right Qualified Code(s): I63.311 - Cerebral infarction due to thrombosis of right middle cerebral artery - Follow up Plan Follow up with: Venkat Otero MD [Physician] - Sebastian Adams DO [Primary Care Provider] - Praveen Cornoa MD [Physician] - Disposition: Xfer SNF Plan of Treatment: chronic cough and bronchitis elevate head of bed, no feeding after 7 PM each night continue with PPI, Reglan, guaifenesin indefinitely. Steroid taper and brief course of doxycycline have been ordered 4 left hip fracture continue with physical therapy and Occupational Therapy Prognosis: Good Rehab Potential: Good I certify that the patient requires SNF services: Yes Overall status at discharge: patient is progressing back to baseline Medical - DS: Qual - VTE Deep Vein Thrombosis/Pulmonary Embolism Present on Admission: No
[2019-05-30] MEDS ORDERED: WARFARIN 3 MG TABLET PO ONE (12:00)
== END 2019-05-30 12:40 | DRG 470 ==
LOC: ED 16:49 → MEDSUR 20:27
PROVIDERS: ADMIT Internal Medicine; ATTEND Internal Medicine